=== PATIENT | male | born 1960 | race African-American/Black ===

== ENCOUNTER → 2017-10-23 | Outpatient (CLI) | payer BC ==
[~2017-10-23] MED LIST: LOPRESSOR 550 MG/TAB PO; MULTIPLE VITAMI1 CAP PO; NO HOME MEDICATIONS; NORCO 325 MG-51 TAB PO; NORVASC 5MG5 MG/TAB PO; PREDNISONE20 MG PO; PRINIVIL10 MG PO; TOPROL XL100 MG PO; VITAMIN B PO
[2017-10-23 16:36] LABS: BASO % 0.5 % (0.0-2.0); EOS # 0.1 (0.0-0.7); EOS % 1.1 % (0-4.0); GRAN # 6.4 (1.4-6.5); GRAN % 73.4 % (42.2-75.2); HEMATOCRIT 37.2 % (42.0-52.0); LYMPH # 1.4 (1.2-3.4); MEAN CELL VOLUME 89 fl (80.0-100.0); MEAN CORPUSCULAR HEMOGLOBIN 29 pg (27.0-31.0); MEAN CORPUSCULAR HGB CONC 32 g/dl (33.0-37.0); MEAN PLATELET VOLUME 11.6 fl (7.4-10.4); MONO # 0.8 (0.1-0.6); MONO % 8.8 % (1.7-9.3); PLATELET COUNT 188 K/mm3 (130-400); RED BLOOD COUNT 4.17 M/mm3 (4.20-5.60); REDCELL DISTRIBUTION WIDTH-CV 16.3 % (11.5-14.5)
[2017-10-23 16:40] LABS: BILIRUBIN,TOTAL 0.3 mg/dL (0.0-1.0); CALCIUM 9.4 mg/dL (8.4-10.2); CHOLESTEROL RISK RATIO 2.9; CREATININE, serum 1.72 mg/dL (0.66-1.25); POTASSIUM 5.3 mmol/L (3.4-5.0); TOTAL PROTEIN 7.2 gm/dL (6.4-8.2)
[2017-10-23 17:10] LABS: TSH w REFLEX 0.426 uIU/mL (0.465-4.680)
== END ==
LOC: COL.LAB 11:25
PROVIDERS: Nurse Practitioner
DX: I10 Essential (primary) hypertension (principal); R06.02 Shortness of breath; Z72.0 Tobacco use

== ENCOUNTER 2018-01-05 07:44 | Emergency (ER) | payer SELFPAY ==
[~2018-01-05] VITALS: Ht 175.3 cm; Wt 59.1 kg
[2018-01-05] MEDS ORDERED: HCTZ 25MG TAB25 MG PO (08:24)
[2018-01-05 08:42] LABS: INR 1.6 (0.8-3.0); PROTHROMBIN TIME 19.1 SECONDS (9.7-12.8)
[2018-01-05 08:51] LABS: BASO % 0.2 % (0.0-2.0); GRAN # 4.1 (1.4-6.5); GRAN % 64.2 % (42.2-75.2); HEMATOCRIT 44.4 % (42.0-52.0); HEMOGLOBIN 15.1 g/dl (13.5-18.0); LYMPH # 1.5 (1.2-3.4); LYMPH % 24.3 % (20.0-51.0); MEAN CELL VOLUME 85 fl (80.0-100.0); MEAN CORPUSCULAR HEMOGLOBIN 29 pg (27.0-31.0); MEAN CORPUSCULAR HGB CONC 34 g/dl (33.0-37.0); MONO # 0.7 (0.1-0.6); PLATELET COUNT 95 K/mm3 (130-400); RED BLOOD COUNT 5.21 M/mm3 (4.20-5.60); REDCELL DISTRIBUTION WIDTH-CV 17.4 % (11.5-14.5)
[2018-01-05 09:00] LABS: ALANINE AMINOTRANSFERASE 64 U/L (21-72); ALBUMIN 3.6 gm/dL (3.5-5.0); ALCOHOL(ethanol),MEDICAL < 10 mg/dL; ALKALINE PHOSPHATASE 289 U/L (50-136); ANION GAP 21 mmol/L (7-16); AST,SGOT 81 U/L (15-37); BILIRUBIN,TOTAL 1.6 mg/dL (0.0-1.0); BLOOD UREA NITROGEN 96 mg/dL (9-20); CALCIUM 8.8 mg/dL (8.4-10.2); CARBON DIOXIDE 19 mmol/L (22-30); CHLORIDE 98 mmol/L (98-107); GLUCOSE 108 mg/dL (74-106); POTASSIUM 5.4 mmol/L (3.4-5.0); SODIUM 139 mmol/L (137-145); TOTAL PROTEIN 6.5 gm/dL (6.4-8.2)
[2018-01-05 09:05] LABS: CREATININE, serum 2.67 mg/dL (0.66-1.25)
[2018-01-05 09:17] LABS: TROPONIN-I 0.082 ng/mL (0.000-0.034)
[2018-01-05 09:48] LABS: ARTERIAL BLD GAS O2 SATURATION 99.6 % (92-100); ARTERIAL BLD GAS TCO2 CT 17.5; ARTERIAL BLOOD GAS BASE EXCESS -4.3 (-2-2); ARTERIAL BLOOD GAS HCO3 16.8 meq/L (22-26); ARTERIAL BLOOD GAS pH 7.49 (7.35-7.45)
[2018-01-05 10:05] LABS: ARTERIAL BLOOD GAS PCO2 22.6 mmHg (35-45); ARTERIAL BLOOD GAS PO2 519.8 mmHg (80-100)
[2018-01-05 10:19] VITALS: BP 154/112; PULSE 84; TEMP 95.6
[2018-01-05 10:55] LABS: COLLECTION METHOD CATHETER
[2018-01-05 11:01] LABS: MUCOUS Present /lpf; PH 5 (5-8); SQUAMOUS EPITHELIAL None Seen /hpf; URINE APPEARANCE Clear; URINE BACTERIA Rare /hpf; URINE BILIRUBIN Negative (NEGATIVE); URINE BLOOD 1+ (NEGATIVE); URINE COLOR Yellow; URINE GLUCOSE Negative (NEGATIVE); URINE KETONE Negative (NEGATIVE); URINE LEUKOCYTE ESTERASE Negative (NEGATIVE); URINE NITRATE Negative (NEGATIVE); URINE PROTEIN(semi-quant) 1+ (NEGATIVE); URINE RBC 0-2 /hpf
== END 2018-01-05 10:50 | disposition short-term general hospital (02) ==
LOC: COL.ER 07:44
PROVIDERS: Family Medicine
DX: I50.9 Heart failure, unspecified (principal); I73.9 Peripheral vascular disease, unspecified; I10 Essential (primary) hypertension; F17.210 Nicotine dependence, cigarettes, uncomplicated
CPT/HCPCS: J1940; J3010; J7030

== ENCOUNTER 2018-03-08 17:33 | Inpatient (IN) | payer MEDICAID ==
[~2018-03-08] VITALS: Ht 175.3 cm; Wt 43.0 kg
[~2018-03-08 17:33] MED LIST changes: +HCTZ 25MG TAB25 MG PO
[2018-03-08 18:25] LABS: BASO % 0.2 % (0.0-2.0); GRAN # 11.2 (1.4-6.5); HEMATOCRIT 31.4 % (42.0-52.0); HEMOGLOBIN 10.1 g/dl (13.5-18.0); LYMPH % 8.1 % (20.0-51.0); MEAN CELL VOLUME 88 fl (80.0-100.0); MEAN CORPUSCULAR HEMOGLOBIN 28 pg (27.0-31.0); MEAN CORPUSCULAR HGB CONC 32 g/dl (33.0-37.0); MEAN PLATELET VOLUME 11.9 fl (7.4-10.4); MONO # 0.6 (0.1-0.6); MONO % 4.4 % (1.7-9.3); PLATELET COUNT 219 K/mm3 (130-400); RED BLOOD COUNT 3.57 M/mm3 (4.20-5.60); REDCELL DISTRIBUTION WIDTH-CV 20.8 % (11.5-14.5)
[2018-03-08 18:28] LABS: INR 1.3 (0.8-3.0); PROTHROMBIN TIME 14.8 SECONDS (9.7-12.8)
[2018-03-08 19:00] LABS: ALBUMIN 3.8 gm/dL (3.5-5.0); BILIRUBIN,TOTAL 0.9 mg/dL (0.0-1.0); CALCIUM 9.1 mg/dL (8.4-10.2); CREATININE, serum 0.98 mg/dL (0.66-1.25); POTASSIUM 4.4 mmol/L (3.4-5.0); TOTAL PROTEIN 7.8 gm/dL (6.4-8.2)
[2018-03-08 19:10] LABS: TROPONIN-I 0.049 ng/mL (0.000-0.034)
[2018-03-08] MEDS ORDERED: NEURONTIN300 MG/CAP PO (19:10)
[2018-03-08] MEDS ORDERED: LANOXIN 0.120.125 MG PO (19:11)
[2018-03-08] MEDS ORDERED: ALDACTONE50 MG PO (19:11)
[2018-03-08] MEDS ORDERED: LIPITOR 10MG10 MG PO (19:11)
[2018-03-08] MEDS ORDERED: TOPROL XL 25MG25 MG PO (19:16)
[2018-03-08 21:44] VITALS: BP 169/129; PULSE 91; TEMP 97.9
[2018-03-09] VITALS (11 sets, daily range): BP systolic 132–166; BP diastolic 94–111; PULSE 77–91; TEMP 97.6–98.5
[2018-03-09 06:02] LABS: BASO % 0.3 % (0.0-2.0); GRAN # 7.5 (1.4-6.5); LYMPH # 1.4 (1.2-3.4); LYMPH % 14.2 % (20.0-51.0); MEAN CELL VOLUME 86 fl (80.0-100.0); MEAN CORPUSCULAR HGB CONC 33 g/dl (33.0-37.0); MEAN PLATELET VOLUME 12.3 fl (7.4-10.4); MONO # 1.1 (0.1-0.6); MONO % 11.2 % (1.7-9.3); PLATELET COUNT 204 K/mm3 (130-400); REDCELL DISTRIBUTION WIDTH-CV 20.3 % (11.5-14.5)
[2018-03-09 06:11] LABS: HEMATOCRIT 26.6 % (42.0-52.0); HEMOGLOBIN 8.8 g/dl (13.5-18.0); MEAN CORPUSCULAR HEMOGLOBIN 28 pg (27.0-31.0)
[2018-03-09 06:14] LABS: CALCIUM 8.6 mg/dL (8.4-10.2); CREATININE, serum 1.02 mg/dL (0.66-1.25); POTASSIUM 4.2 mmol/L (3.4-5.0)
[2018-03-10] VITALS (11 sets, daily range): BP systolic 124–158; BP diastolic 75–108; PULSE 50–107; TEMP 97.2–98.4
[2018-03-10 07:45] LABS: BASO % 0.2 % (0.0-2.0); EOS % 0.1 % (0-4.0); GRAN # 9.4 (1.4-6.5); GRAN % 81.9 % (42.2-75.2); LYMPH # 1.3 (1.2-3.4); LYMPH % 11.2 % (20.0-51.0); MEAN CELL VOLUME 85 fl (80.0-100.0); MEAN CORPUSCULAR HGB CONC 34 g/dl (33.0-37.0); MEAN PLATELET VOLUME 13.2 fl (7.4-10.4); MONO # 0.7 (0.1-0.6); MONO % 6.1 % (1.7-9.3); PLATELET COUNT 245 K/mm3 (130-400); RED BLOOD COUNT 3.48 M/mm3 (4.20-5.60); REDCELL DISTRIBUTION WIDTH-CV 20.7 % (11.5-14.5)
[2018-03-10 07:51] LABS: HEMATOCRIT 29.4 % (42.0-52.0); HEMOGLOBIN 9.9 g/dl (13.5-18.0); MEAN CORPUSCULAR HEMOGLOBIN 28 pg (27.0-31.0)
[2018-03-10 07:53] LABS: CALCIUM 8.6 mg/dL (8.4-10.2); CREATININE, serum 1.26 mg/dL (0.66-1.25)
[2018-03-11] VITALS (266 sets, daily range): BP systolic 121–158; BP diastolic 79–113; PULSE 68–96; TEMP 97–98.9; O2SAT 92–100
[2018-03-11 06:33] LABS: BASO % 0.2 % (0.0-2.0); EOS % 0.2 % (0-4.0); GRAN # 8.1 (1.4-6.5); GRAN % 78.9 % (42.2-75.2); LYMPH # 1.4 (1.2-3.4); LYMPH % 13.1 % (20.0-51.0); MEAN CELL VOLUME 87 fl (80.0-100.0); MEAN CORPUSCULAR HGB CONC 33 g/dl (33.0-37.0); MEAN PLATELET VOLUME 12.2 fl (7.4-10.4); MONO # 0.8 (0.1-0.6); MONO % 7.3 % (1.7-9.3); PLATELET COUNT 238 K/mm3 (130-400); RED BLOOD COUNT 3.41 M/mm3 (4.20-5.60); REDCELL DISTRIBUTION WIDTH-CV 20.8 % (11.5-14.5)
[2018-03-11 06:45] LABS: HEMATOCRIT 29.7 % (42.0-52.0); HEMOGLOBIN 9.7 g/dl (13.5-18.0); MEAN CORPUSCULAR HEMOGLOBIN 28 pg (27.0-31.0)
[2018-03-11 06:50] LABS: CALCIUM 8.6 mg/dL (8.4-10.2); CREATININE, serum 1.09 mg/dL (0.66-1.25); POTASSIUM 3.5 mmol/L (3.4-5.0)
[2018-03-12] VITALS: BP 120/75; PULSE 75; TEMP 97.8
[2018-03-12 04:00] VITALS: BP 108/71; PULSE 72; TEMP 97.8
[2018-03-12 05:51] LABS: BASO % 0.3 % (0.0-2.0); EOS # 0.1 (0.0-0.7); EOS % 0.8 % (0-4.0); GRAN # 7.6 (1.4-6.5); GRAN % 74.2 % (42.2-75.2); HEMOGLOBIN 10.1 g/dl (13.5-18.0); LYMPH # 1.7 (1.2-3.4); LYMPH % 16.9 % (20.0-51.0); MEAN CELL VOLUME 83 fl (80.0-100.0); MEAN CORPUSCULAR HEMOGLOBIN 29 pg (27.0-31.0); MEAN CORPUSCULAR HGB CONC 34 g/dl (33.0-37.0); MEAN PLATELET VOLUME 11.4 fl (7.4-10.4); MONO # 0.8 (0.1-0.6); MONO % 7.6 % (1.7-9.3); PLATELET COUNT 235 K/mm3 (130-400); RED BLOOD COUNT 3.55 M/mm3 (4.20-5.60); REDCELL DISTRIBUTION WIDTH-CV 20.7 % (11.5-14.5)
[2018-03-12 05:53] LABS: HEMATOCRIT 29.5 % (42.0-52.0)
[2018-03-12 06:04] LABS: CALCIUM 8.1 mg/dL (8.4-10.2); CREATININE, serum 1.07 mg/dL (0.66-1.25); POTASSIUM 3.3 mmol/L (3.4-5.0)
[2018-03-12 07:15] VITALS: BP 119/82; PULSE 70; TEMP 97.9
[2018-03-12] MEDS ORDERED: BRILINTA90 MG PO (08:14)
[2018-03-12] MEDS ORDERED: LIPITOR 40MG TA40 MG PO (08:15)
[2018-03-12] MEDS ORDERED: NORVASC 5MG5 MG/TAB PO (08:16)
[2018-03-12] MEDS ORDERED: TOPROL XL100 MG PO (08:16)
[2018-03-12] MEDS ORDERED: ENTRESTO 24 MG1 EACH PO (08:16)
[2018-03-12] MEDS ORDERED: ISOSORBIDE MON120 MG PO (08:16)
[2018-03-12] MEDS ORDERED: ASPIRIN E.C. 8181 MG PO (08:18)
[2018-03-12] MEDS ORDERED: LASIX 40MG TABL40 MG PO (08:18)
[2018-03-12] MEDS ORDERED: K-TAB20 PO (08:19)
== END 2018-03-12 14:40 | disposition home or self-care (01) | DRG 247 ==
LOC: COL.ER 17:33 → ICU 20:24 → MEDICAL 03-10 04:15 → ICU 03-11 10:47 → MEDICAL 03-11 10:47 → ICU 03-11 10:47
PROVIDERS: Emergency Medicine; Nurse Practitioner; Physician Assistant
PROC: 027035Z Dilation of Coronary Artery, One Artery with Two Drug-eluting Intraluminal Devices, Percutaneous Approach (ICD-10-PCS; principal; 2018-03-11)
PROC: B2111ZZ Fluoroscopy of Multiple Coronary Arteries using Low Osmolar Contrast (ICD-10-PCS; 2018-03-11)
DX: I11.0 Hypertensive heart disease with heart failure (principal); N17.9 Acute kidney failure, unspecified; I50.23 Acute on chronic systolic (congestive) heart failure; E44.0 Moderate protein-calorie malnutrition; Z68.1 Body mass index [BMI] 19.9 or less, adult; I42.9 Cardiomyopathy, unspecified; I27.20 Pulmonary hypertension, unspecified; I16.0 Hypertensive urgency; F17.210 Nicotine dependence, cigarettes, uncomplicated; J44.9 Chronic obstructive pulmonary disease, unspecified; I25.2 Old myocardial infarction; Z89.612 Acquired absence of left leg above knee; Z95.5 Presence of coronary angioplasty implant and graft; I73.9 Peripheral vascular disease, unspecified
CPT/HCPCS: 99223-AI; 99233-AI; 99239; A9502; C1725; C1760; C1769; C1874; C1887; C1894; C9600; J0360; J0583; J1650; J1940; J2250; J2405; J2543; J2785; J3010; Q9967

== ENCOUNTER 2018-03-17 17:10 | Inpatient (IN) | payer MEDICAID ==
[~2018-03-17] VITALS: Ht 175.3 cm; Wt 44.9 kg
[2018-03-17 17:42] VITALS: BP 115/70; PULSE 74; TEMP 98
[2018-03-17 18:00] VITALS: BP 120/81; PULSE 76; TEMP 98
[2018-03-17] MEDS ORDERED: HCTZ 25MG TAB25 MG PO (18:33)
[2018-03-17 20:30] VITALS: BP 114/83; PULSE 743; TEMP 98.2
[2018-03-17 22:19] LABS: POTASSIUM 5.3 mmol/L (3.4-5.0)
[2018-03-17 22:43] LABS: TROPONIN-I 0.786 ng/mL (0.000-0.034)
[2018-03-18] VITALS (14 sets, daily range): BP systolic 83–110; BP diastolic 60–79; PULSE 70–84; TEMP 97.6–98.3; O2SAT 98–100
[2018-03-18 02:33] LABS: CALCIUM 9.3 mg/dL (8.4-10.2); CREATININE, serum 1.38 mg/dL (0.66-1.25); POTASSIUM 5.3 mmol/L (3.4-5.0)
[2018-03-18 02:47] LABS: TROPONIN-I 0.682 ng/mL (0.000-0.034)
[2018-03-18 04:19] LABS: BASO # 0.1 (0.0-0.2); BASO % 0.6 % (0.0-2.0); EOS # 0.3 (0.0-0.7); EOS % 2.9 % (0-4.0); GRAN # 5.4 (1.4-6.5); GRAN % 60.3 % (42.2-75.2); HEMOGLOBIN 11.9 g/dl (13.5-18.0); LYMPH # 2.2 (1.2-3.4); LYMPH % 24.4 % (20.0-51.0); MEAN CELL VOLUME 85 fl (80.0-100.0); MEAN CORPUSCULAR HEMOGLOBIN 28 pg (27.0-31.0); MEAN CORPUSCULAR HGB CONC 33 g/dl (33.0-37.0); MONO % 11.4 % (1.7-9.3); PLATELET COUNT 270 K/mm3 (130-400); RED BLOOD COUNT 4.19 M/mm3 (4.20-5.60); REDCELL DISTRIBUTION WIDTH-CV 21.2 % (11.5-14.5)
[2018-03-18 04:23] LABS: HEMATOCRIT 35.6 % (42.0-52.0)
[2018-03-18 04:29] LABS: BILIRUBIN,TOTAL 0.4 mg/dL (0.0-1.0); CALCIUM 9.2 mg/dL (8.4-10.2); CREATININE, serum 1.34 mg/dL (0.66-1.25); MAGNESIUM 2.3 mg/dL (1.6-2.3); POTASSIUM 5.3 mmol/L (3.4-5.0)
[2018-03-18 05:15] LABS: BILIRUBIN,DIRECT 0.4 mg/dL (0.0-0.4)
[2018-03-18 18:11] LABS: CALCIUM 9.1 mg/dL (8.4-10.2); CREATININE, serum 1.49 mg/dL (0.66-1.25); POTASSIUM 5.1 mmol/L (3.4-5.0)
[2018-03-19] VITALS (58 sets, daily range): BP systolic 77–105; BP diastolic 57–68; PULSE 71–97; TEMP 97.3–98.3; O2SAT 64–100
[2018-03-19 06:28] LABS: BASO # 0.1 (0.0-0.2); BASO % 0.6 % (0.0-2.0); EOS # 0.3 (0.0-0.7); EOS % 3.4 % (0-4.0); GRAN # 5.1 (1.4-6.5); GRAN % 61.3 % (42.2-75.2); HEMATOCRIT 38.1 % (42.0-52.0); HEMOGLOBIN 12.8 g/dl (13.5-18.0); LYMPH # 1.9 (1.2-3.4); LYMPH % 22.9 % (20.0-51.0); MEAN CELL VOLUME 83 fl (80.0-100.0); MEAN CORPUSCULAR HEMOGLOBIN 28 pg (27.0-31.0); MEAN CORPUSCULAR HGB CONC 34 g/dl (33.0-37.0); MEAN PLATELET VOLUME 11.1 fl (7.4-10.4); MONO # 0.9 (0.1-0.6); MONO % 11.2 % (1.7-9.3); PLATELET COUNT 293 K/mm3 (130-400); RED BLOOD COUNT 4.57 M/mm3 (4.20-5.60); REDCELL DISTRIBUTION WIDTH-CV 21.2 % (11.5-14.5)
[2018-03-19 06:39] LABS: ALBUMIN 3.8 gm/dL (3.5-5.0); BILIRUBIN,TOTAL 0.7 mg/dL (0.0-1.0); CALCIUM 9.2 mg/dL (8.4-10.2); CREATININE, serum 1.39 mg/dL (0.66-1.25); MAGNESIUM 2.1 mg/dL (1.6-2.3); POTASSIUM 5.3 mmol/L (3.4-5.0)
[2018-03-19 17:12] LABS: CALCIUM 8.6 mg/dL (8.4-10.2); CREATININE, serum 1.52 mg/dL (0.66-1.25); POTASSIUM 4.9 mmol/L (3.4-5.0)
[2018-03-20 04:14] VITALS: BP 94/75; PULSE 80; TEMP 98.3
[2018-03-20 08:09] LABS: BASO # 0.1 (0.0-0.2); BASO % 0.7 % (0.0-2.0); EOS # 0.2 (0.0-0.7); EOS % 2.8 % (0-4.0); GRAN # 4.6 (1.4-6.5); GRAN % 62.4 % (42.2-75.2); LYMPH # 1.6 (1.2-3.4); LYMPH % 21.3 % (20.0-51.0); MEAN CELL VOLUME 87 fl (80.0-100.0); MEAN CORPUSCULAR HEMOGLOBIN 28 pg (27.0-31.0); MEAN CORPUSCULAR HGB CONC 33 g/dl (33.0-37.0); MEAN PLATELET VOLUME 10.8 fl (7.4-10.4); MONO # 0.9 (0.1-0.6); MONO % 12.5 % (1.7-9.3); PLATELET COUNT 314 K/mm3 (130-400); RED BLOOD COUNT 4.23 M/mm3 (4.20-5.60); REDCELL DISTRIBUTION WIDTH-CV 20.9 % (11.5-14.5)
[2018-03-20 08:16] LABS: HEMATOCRIT 36.8 % (42.0-52.0)
[2018-03-20 08:28] LABS: ALBUMIN 3.7 gm/dL (3.5-5.0); CALCIUM 9.1 mg/dL (8.4-10.2); CREATININE, serum 1.3 mg/dL (0.66-1.25); PHOSPHOROUS 5.1 mg/dL (2.5-4.5); POTASSIUM 5.1 mmol/L (3.4-5.0)
[2018-03-20 09:28] VITALS: BP 108/67; PULSE 88; TEMP 98.6
[2018-03-20 12:14] VITALS: BP 103/71; PULSE 74; TEMP 97.3
[2018-03-20 15:21] LABS: CALCIUM 8.5 mg/dL (8.4-10.2); CREATININE, serum 1.31 mg/dL (0.66-1.25); POTASSIUM 4.4 mmol/L (3.4-5.0)
[2018-03-20] MEDS ORDERED: LASIX 20MG TABL20 MG PO (16:05)
[2018-03-20 16:34] VITALS: BP 95/65; PULSE 80; TEMP 97.7
== END 2018-03-20 17:10 | disposition home or self-care (01) | DRG 640 ==
LOC: ICU 17:10 → SURG 03-19 18:35
PROVIDERS: Family Medicine; Nurse Practitioner Family
DX: E87.5 Hyperkalemia (principal); E43 Unspecified severe protein-calorie malnutrition; I21.4 Non-ST elevation (NSTEMI) myocardial infarction; Z68.1 Body mass index [BMI] 19.9 or less, adult; N17.9 Acute kidney failure, unspecified; I50.22 Chronic systolic (congestive) heart failure; J44.9 Chronic obstructive pulmonary disease, unspecified; I25.10 Atherosclerotic heart disease of native coronary artery without angina pectoris; Z95.5 Presence of coronary angioplasty implant and graft; I73.9 Peripheral vascular disease, unspecified; Z89.512 Acquired absence of left leg below knee; I08.1 Rheumatic disorders of both mitral and tricuspid valves; F17.210 Nicotine dependence, cigarettes, uncomplicated; I25.5 Ischemic cardiomyopathy
CPT/HCPCS: 99232-AI; 99233-AI; 99239; G0378; G0379; J1170; J1650; J1940; J7050

== ENCOUNTER → 2018-03-17 | Outpatient (CLI) | payer MEDICAID ==
[~2018-03-17] MED LIST changes: +ALDACTONE50 MG PO; +ASPIRIN E.C. 8181 MG PO; +BRILINTA90 MG PO; +ENTRESTO 24 MG1 EACH PO; +ISOSORBIDE MON120 MG PO; +K-TAB20 PO; +LANOXIN 0.120.125 MG PO; +LASIX 40MG TABL40 MG PO; +LIPITOR 10MG10 MG PO; +LIPITOR 40MG TA40 MG PO; +NEURONTIN300 MG/CAP PO; +TOPROL XL 25MG25 MG PO
[2018-03-17 16:01] LABS: BASO # 0.1 (0.0-0.2); BASO % 0.5 % (0.0-2.0); EOS # 0.2 (0.0-0.7); EOS % 2.1 % (0-4.0); GRAN # 6.5 (1.4-6.5); GRAN % 67.9 % (42.2-75.2); HEMOGLOBIN 11.7 g/dl (13.5-18.0); LYMPH # 1.8 (1.2-3.4); LYMPH % 19.1 % (20.0-51.0); MEAN CELL VOLUME 87 fl (80.0-100.0); MEAN CORPUSCULAR HEMOGLOBIN 29 pg (27.0-31.0); MEAN CORPUSCULAR HGB CONC 33 g/dl (33.0-37.0); MEAN PLATELET VOLUME 11.1 fl (7.4-10.4); MONO % 10.1 % (1.7-9.3); PLATELET COUNT 279 K/mm3 (130-400); RED BLOOD COUNT 4.09 M/mm3 (4.20-5.60); REDCELL DISTRIBUTION WIDTH-CV 21.7 % (11.5-14.5)
[2018-03-17 16:03] LABS: HEMATOCRIT 35.4 % (42.0-52.0)
[2018-03-17 16:07] LABS: BILIRUBIN,TOTAL 0.7 mg/dL (0.0-1.0); CALCIUM 9.5 mg/dL (8.4-10.2); CREATININE, serum 1.33 mg/dL (0.66-1.25); TOTAL PROTEIN 8.1 gm/dL (6.4-8.2)
[2018-03-17 16:18] LABS: POTASSIUM 6.8 mmol/L (3.4-5.0)
[2018-03-17 16:36] LABS: TSH w REFLEX 0.219 uIU/mL (0.465-4.680)
== END ==
LOC: COL.LAB 11:00
PROVIDERS: Family Medicine
DX: I50.20 Unspecified systolic (congestive) heart failure (principal); R94.6 Abnormal results of thyroid function studies

== ENCOUNTER → 2018-03-22 | Outpatient (CLI) | payer MEDICAID, BC ==
[~2018-03-22] MED LIST changes: +LASIX 20MG TABL20 MG PO
[2018-03-22 14:26] LABS: CALCIUM 9.3 mg/dL (8.4-10.2); CREATININE, serum 1.33 mg/dL (0.66-1.25); POTASSIUM 5.7 mmol/L (3.4-5.0)
== END ==
LOC: COL.LAB 09:55
PROVIDERS: Family Medicine
DX: E87.5 Hyperkalemia (principal)

== ENCOUNTER → 2018-03-23 | Outpatient (CLI) | payer MEDICAID ==
[2018-03-23 10:20] LABS: CALCIUM 9.3 mg/dL (8.4-10.2); CREATININE, serum 1.21 mg/dL (0.66-1.25); POTASSIUM 4.7 mmol/L (3.4-5.0)
== END ==
LOC: COL.LAB 09:40
PROVIDERS: Family Medicine
DX: E78.5 Hyperlipidemia, unspecified (principal)

== ENCOUNTER → 2018-03-26 | Outpatient (CLI) | payer MEDICAID ==
[2018-03-26 16:57] LABS: CALCIUM 9.1 mg/dL (8.4-10.2); CREATININE, serum 1.16 mg/dL (0.66-1.25); POTASSIUM 4.9 mmol/L (3.4-5.0)
== END ==
LOC: COL.LAB 16:08
PROVIDERS: Family Medicine
DX: Z51.81 Encounter for therapeutic drug level monitoring (principal)

== ENCOUNTER → 2018-04-12 | Outpatient (CLI) | payer MEDICAID ==
[2018-04-12 16:15] LABS: CALCIUM 9.9 mg/dL (8.4-10.2); CREATININE, serum 1.53 mg/dL (0.66-1.25); POTASSIUM 5.5 mmol/L (3.4-5.0)
== END ==
LOC: COL.LAB 11:21
PROVIDERS: Family Medicine
DX: E87.5 Hyperkalemia (principal)

== ENCOUNTER → 2018-04-15 | Outpatient (CLI) | payer MEDICAID ==
[2018-04-15 15:44] LABS: CALCIUM 9.5 mg/dL (8.4-10.2); CREATININE, serum 1.51 mg/dL (0.66-1.25)
== END ==
LOC: COL.LAB 10:22
PROVIDERS: Family Medicine
DX: E87.5 Hyperkalemia (principal)

== ENCOUNTER → 2018-05-17 | Outpatient (CLI) | payer MEDICAID ==
[2018-05-17 11:45] LABS: COLLECTION METHOD CATHETER
[2018-05-17 11:57] LABS: CALCIUM 9.7 mg/dL (8.4-10.2); CREATININE, serum 1.96 mg/dL (0.66-1.25); POTASSIUM 4.8 mmol/L (3.4-5.0)
[2018-05-17 12:01] LABS: PH 5 (5-8); SQUAMOUS EPITHELIAL 0-2 /hpf; URINE APPEARANCE Clear; URINE BACTERIA None Seen /hpf; URINE BILIRUBIN Negative (NEGATIVE); URINE BLOOD Negative (NEGATIVE); URINE COLOR Yellow; URINE GLUCOSE Negative (NEGATIVE); URINE KETONE Negative (NEGATIVE); URINE LEUKOCYTE ESTERASE Negative (NEGATIVE); URINE NITRATE Negative (NEGATIVE); URINE PROTEIN(semi-quant) Negative (NEGATIVE); URINE RBC 0-2 /hpf; URINE UROBILINOGEN Negative (NEGATIVE); URINE WBC 0-2 /hpf
== END ==
LOC: COL.LAB 11:24
PROVIDERS: Internal Medicine
DX: I12.9 Hypertensive chronic kidney disease with stage 1 through stage 4 chronic kidney disease, or unspecified chronic kidney disease (principal); N18.3 Chronic kidney disease, stage 3 (moderate); E87.5 Hyperkalemia

== ENCOUNTER 2018-06-04 13:01 | Outpatient (RCR) | payer MEDICAID | END 2018-07-15 | disposition home or self-care (01) | LOC: COL.CR | DX: Z48.812 Encounter for surgical aftercare following surgery on the circulatory system (principal); Z95.5 Presence of coronary angioplasty implant and graft; I25.10 Atherosclerotic heart disease of native coronary artery without angina pectoris ==

== ENCOUNTER 2019-03-04 08:27 | Outpatient (CLI) | payer MEDICAID ==
[~2019-03-04] VITALS: Ht 175.3 cm; Wt 49.0 kg
[2019-03-04] VITALS (7 sets, daily range): BP systolic 108–117; BP diastolic 78–90; PULSE 63–71; TEMP 97.5–97.9
[~2019-03-04 08:27] MED LIST changes: +ALDACTONE 25MG25 M1 PO; +ENTRESTO 49 MG1 EACH PO; +FLONASEALLERGY NS; +MULTI VITAMINS1 TAB PO; +NITRO-DUR0.4 MG/PAT TD; +NITROSTAT0.4 MG/TAB SL; +NORVASC 10MG10 MG PO; +PLAVIX 75MG TAB75 MG PO; +REMERON30 MG PO; +TYLENOL 325MG325 MG PO
[2019-03-04 09:09] LABS: HEMATOCRIT 38.1 % (42.0-52.0); MEAN CELL VOLUME 87 fl (80.0-100.0); MEAN CORPUSCULAR HEMOGLOBIN 27 pg (27.0-31.0); MEAN CORPUSCULAR HGB CONC 32 g/dl (33.0-37.0); PLATELET COUNT 161 K/mm3 (130-400); RED BLOOD COUNT 4.39 M/mm3 (4.20-5.60); REDCELL DISTRIBUTION WIDTH-CV 19.5 % (11.5-14.5)
[2019-03-04] MEDS ORDERED: ALDACTONE 25MG25 M1 PO (09:18)
[2019-03-04 09:19] LABS: CALCIUM 9.1 mg/dL (8.4-10.2); CREATININE, serum 1.52 (0.66-1.25); POTASSIUM 5.1 mmol/L (3.4-5.0)
[2019-03-04] MEDS ORDERED: NORVASC 10MG10 MG PO (09:19)
[2019-03-04] MEDS ORDERED: PLAVIX 75MG TAB75 MG PO (09:21)
[2019-03-04] MEDS ORDERED: REMERON 15M15 MG/TA1 PO (09:22)
[2019-03-04] MEDS ORDERED: TYLENOL 500MG500 MG PO (09:23)
[2019-03-04] MEDS ORDERED: ENTRESTO 49 MG1 EACH PO (09:24)
[2019-03-04 09:26] LABS: PROTHROMBIN TIME 11.5 SECONDS (9.7-12.8)
[2019-03-04] MEDS ORDERED: NITRO-DUR0.4 MG/PAT TD (09:26)
[2019-03-04] MEDS ORDERED: NITROSTAT0.4 MG/TAB SL (09:27)
[2019-03-04] MEDS ORDERED: ASPIRIN E.C. 8181 MG PO (09:33)
[2019-03-04] MEDS ORDERED: ENTRESTO 97 MG1 EACH PO (10:25)
--- NOTE | 2019-03-04 10:45 | NUR ---
IVELISSE complete, pt yane IVELISSE well.
--- NOTE | 2019-03-04 12:00 | NUR ---
Pt yane PO intake s n/v. PIV removed from R AC with catheter intact. Pt transfered to w/c with SBA.
--- NOTE | 2019-03-04 12:30 | NUR ---
Pt discharged per w/c by nurse with brother in law.
== END 2019-03-04 13:08 | disposition home or self-care (01) ==
LOC: COL.RAD 08:27
PROVIDERS: Internal Medicine Cardiovascular Disease
DX: I34.0 Nonrheumatic mitral (valve) insufficiency (principal)
CPT/HCPCS: J2704

== ENCOUNTER 2019-03-09 11:04 | Observation (INO) | payer MEDICAID ==
[2019-03-09] VITALS (170 sets, daily range): BP systolic 106–109; BP diastolic 79–81; PULSE 61–66; TEMP 97.5–98; O2SAT 41–100
[~2019-03-09] VITALS: Ht 175.3 cm; Wt 45.5 kg
[~2019-03-09 11:04] MED LIST changes: +ENTRESTO 97 MG1 EACH PO; +REMERON 15M15 MG/TA1 PO; +TYLENOL 500MG500 MG PO
[2019-03-09 12:10] LABS: BASO % 0.4 % (0.0-2.0); EOS # 0.1 (0.0-0.7); EOS % 1.3 % (0-4.0); GRAN # 4.3 (1.4-6.5); GRAN % 64.6 % (42.2-75.2); HEMATOCRIT 43.7 % (42.0-52.0); HEMOGLOBIN 14.2 g/dl (13.5-18.0); LYMPH # 1.4 (1.2-3.4); LYMPH % 21.3 % (20.0-51.0); MEAN CELL VOLUME 84 fl (80.0-100.0); MEAN CORPUSCULAR HEMOGLOBIN 27 pg (27.0-31.0); MEAN CORPUSCULAR HGB CONC 33 g/dl (33.0-37.0); MONO # 0.8 (0.1-0.6); MONO % 12.1 % (1.7-9.3); PLATELET COUNT 145 K/mm3 (130-400)
[2019-03-09 12:14] LABS: PROTHROMBIN TIME 11.2 SECONDS (9.7-12.8)
[2019-03-09 12:17] LABS: PARTIAL THROMBOPLASTIN TIME 30.4 SECONDS (26.0-37.0)
[2019-03-09 12:24] LABS: ALANINE AMINOTRANSFERASE 15 U/L (21-72); ALBUMIN 4.3 gm/dL (3.5-5.0); ALKALINE PHOSPHATASE 150 U/L (50-136); ANION GAP 11 mmol/L (7-16); AST,SGOT 32 U/L (15-37); BILIRUBIN,TOTAL 0.5 mg/dL (0.0-1.0); BLOOD UREA NITROGEN 47 mg/dL (9-20); CALCIUM 9.2 mg/dL (8.4-10.2); CARBON DIOXIDE 22 mmol/L (22-30); CHLORIDE 108 mmol/L (98-107); CREATININE, serum 2.27 (0.66-1.25); GLUCOSE 99 mg/dL (74-106); POTASSIUM 4.5 mmol/L (3.4-5.0); SODIUM 141 mmol/L (137-145)
[2019-03-09 12:29] LABS: ACETAMINOPHEN < 10 ug/mL (10-30); ALCOHOL(ethanol),MEDICAL < 10 mg/dL; SALICYLATE < 1.0 mg/dL
[2019-03-09 12:39] LABS: PROLACTIN 11.6 ng/mL (3.7-17.9); TROPONIN-I < 0.012 ng/mL (0.000-0.035)
[2019-03-09 12:55] LABS: TSH w REFLEX 0.761 uIU/mL (0.465-4.680)
[2019-03-09 14:45] LABS: COLLECTION METHOD CLEAN CATCH
[2019-03-09 15:00] LABS: TRICYCLIC ANTIDEPRESS URINE NEGATIVE
[2019-03-09 15:21] LABS: PH 5 (5-8); SQUAMOUS EPITHELIAL None Seen /hpf; URINE APPEARANCE Clear; URINE BACTERIA Rare /hpf; URINE BILIRUBIN Negative (NEGATIVE); URINE BLOOD Negative (NEGATIVE); URINE COLOR Yellow; URINE GLUCOSE Negative (NEGATIVE); URINE KETONE Negative (NEGATIVE); URINE LEUKOCYTE ESTERASE Negative (NEGATIVE); URINE NITRATE Negative (NEGATIVE); URINE PROTEIN(semi-quant) Negative (NEGATIVE); URINE RBC 0-2 /hpf; URINE UROBILINOGEN Negative (NEGATIVE)
--- NOTE | 2019-03-09 16:15 | NUR ---
Report received from OSKAR Huynh waiting on room to be cleaned at this time.
--- NOTE | 2019-03-09 17:23 | NUR ---
Patient admitted to ICU#8 via stretcher from ER, patient moved himself to bed. Assessment complete, BELLA Oquendo) at bedside. Patient brought medications from home, when this RN was going through them for the med rec, a "pipe" was found in the flonase box, Security was called, who in turn called [employer] to come get the pipe.
--- NOTE | 2019-03-09 18:00 | NUR ---
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
--- NOTE | 2019-03-09 19:21 | NUR ---
Report given to OSKAR Molina.
--- NOTE | 2019-03-09 19:25 | NUR ---
Bedside report received from OSKAR Olea
--- NOTE | 2019-03-09 19:45 | NUR ---
Belongings packed into bag and taken to locked cabinet. acid condenser bag.
--- NOTE | 2019-03-09 20:00 | NUR ---
Patient resting in bed, awakens to name. Patient is alert and oriented. Assessment complete. Patient's HR and rhythm regular with normal S1 and S2 heard. Patient's lungs are clear with diminished bases. Bowel sounds are active x4. No complaints of pain. Assisted patient to sitting up for meal. Will continue to monitor. Call light within reach.
[2019-03-10] VITALS (241 sets, daily range): BP systolic 102–116; BP diastolic 71–74; PULSE 58–77; TEMP 97.6–98.3; O2SAT 30–99
--- NOTE | 2019-03-10 | NUR ---
Patient asleep at this time. Awakens to name. He is alert and oriented. Responds to questions appropriately. Patient has no needs at this time and no complaints of pain. Vitals are stable. Will continue to monitor. Call light within reach.
--- NOTE | 2019-03-10 04:00 | NUR ---
Patient sleeping at this time. No signs of distress. He alert and oriented, awakens to name, follows commands. No complaints of pain. No further needs at this time. Will continue to monitor. Call light within reach.
--- NOTE | 2019-03-10 06:18 | NUR ---
report called to OSKAR Joseph. Patient transferred to [facility] with belongings.
[2019-03-10 09:03] LABS: BASO % 0.6 % (0.0-2.0); EOS # 0.1 (0.0-0.7); EOS % 1.9 % (0-4.0); GRAN # 4.6 (1.4-6.5); GRAN % 67.5 % (42.2-75.2); HEMATOCRIT 45.3 % (42.0-52.0); HEMOGLOBIN 14.5 g/dl (13.5-18.0); LYMPH # 1.4 (1.2-3.4); LYMPH % 20.3 % (20.0-51.0); MEAN CELL VOLUME 85 fl (80.0-100.0); MEAN CORPUSCULAR HEMOGLOBIN 27 pg (27.0-31.0); MEAN CORPUSCULAR HGB CONC 32 g/dl (33.0-37.0); MEAN PLATELET VOLUME 10.6 fl (7.4-10.4); MONO # 0.7 (0.1-0.6); MONO % 9.6 % (1.7-9.3); PLATELET COUNT 159 K/mm3 (130-400); RED BLOOD COUNT 5.35 M/mm3 (4.20-5.60); REDCELL DISTRIBUTION WIDTH-CV 20.5 % (11.5-14.5)
[2019-03-10 09:10] LABS: ALANINE AMINOTRANSFERASE < 6 U/L (21-72); ALBUMIN 4.1 gm/dL (3.5-5.0); ALKALINE PHOSPHATASE 139 U/L (50-136); ANION GAP 10 mmol/L (7-16); AST,SGOT 26 U/L (15-37); BILIRUBIN,TOTAL 0.5 mg/dL (0.0-1.0); BLOOD UREA NITROGEN 35 mg/dL (9-20); CALCIUM 9.1 mg/dL (8.4-10.2); CARBON DIOXIDE 23 mmol/L (22-30); CHLORIDE 109 mmol/L (98-107); CREATININE, serum 1.68 (0.66-1.25); GLUCOSE 87 mg/dL (74-106); POTASSIUM 4.9 mmol/L (3.4-5.0); SODIUM 142 mmol/L (137-145); TOTAL PROTEIN 7.7 gm/dL (6.4-8.2)
--- NOTE | 2019-03-10 15:46 | NUR ---
SW unable to meet with patient before discharge.
--- NOTE | 2019-03-10 16:10 | NUR ---
discharge orders discussed with patient, instructed to follow up as we have scheduled, discussed medicaitons changes, instructed to call Cardiology if his life vest is not functioning properly at home, instructed on smoking and illicit drug cessaation, IV and tele removed, leaving with his mom and neice
== END 2019-03-10 16:25 | disposition home or self-care (01) ==
LOC: COL.ER 11:04 → MEDICAL 13:33 → EU 13:33 → MEDICAL 13:33 → ICU 16:47 → MEDICAL 03-10 06:14
PROVIDERS: Emergency Medicine; Nurse Practitioner Family; ADMIT Family Medicine
DX: R41.82 Altered mental status, unspecified (principal); I25.5 Ischemic cardiomyopathy; Z89.512 Acquired absence of left leg below knee; I10 Essential (primary) hypertension; G62.9 Polyneuropathy, unspecified; I25.10 Atherosclerotic heart disease of native coronary artery without angina pectoris; F17.210 Nicotine dependence, cigarettes, uncomplicated; Z79.51 Long term (current) use of inhaled steroids; Z79.02 Long term (current) use of antithrombotics/antiplatelets; Z79.82 Long term (current) use of aspirin; I25.2 Old myocardial infarction
CPT/HCPCS: 99222-AI; G0378; J1644

== ENCOUNTER → 2019-03-31 | Outpatient (CLI) | payer MEDICAID ==
[2019-03-31 11:14] LABS: CALCIUM 9.1 mg/dL (8.4-10.2); CREATININE, serum 1.34 (0.66-1.25); POTASSIUM 5.7 mmol/L (3.4-5.0)
== END ==
LOC: COL.LAB 10:23
PROVIDERS: Internal Medicine
DX: I12.9 Hypertensive chronic kidney disease with stage 1 through stage 4 chronic kidney disease, or unspecified chronic kidney disease (principal); N18.3 Chronic kidney disease, stage 3 (moderate)

== ENCOUNTER 2019-04-25 20:32 | Observation (INO) | payer MEDICAID ==
[~2019-04-25] VITALS: Ht 175.3 cm; Wt 53.8 kg
[2019-04-25 21:03] LABS: BASO % 0.3 % (0.0-2.0); EOS # 0.1 (0.0-0.7); EOS % 0.8 % (0-4.0); GRAN # 7.2 (1.4-6.5); GRAN % 68.7 % (42.2-75.2); HEMATOCRIT 42.8 % (42.0-52.0); HEMOGLOBIN 13.4 g/dl (13.5-18.0); LYMPH # 2.3 (1.2-3.4); LYMPH % 22.3 % (20.0-51.0); MEAN CELL VOLUME 89 fl (80.0-100.0); MEAN CORPUSCULAR HEMOGLOBIN 28 pg (27.0-31.0); MEAN CORPUSCULAR HGB CONC 31 g/dl (33.0-37.0); MONO # 0.8 (0.1-0.6); MONO % 7.6 % (1.7-9.3); PLATELET COUNT 148 K/mm3 (130-400); RED BLOOD COUNT 4.79 M/mm3 (4.20-5.60); REDCELL DISTRIBUTION WIDTH-CV 20.2 % (11.5-14.5)
[2019-04-25 21:14] LABS: COLLECTION METHOD CLEAN CATCH
[2019-04-25 21:16] LABS: INR 1.1 (0.8-3.0)
[2019-04-25 21:18] LABS: PARTIAL THROMBOPLASTIN TIME 27.9 SECONDS (26.0-37.0)
[2019-04-25 21:19] LABS: PH 5 (5-8); SQUAMOUS EPITHELIAL None Seen /hpf; URINE APPEARANCE Clear; URINE BACTERIA None Seen /hpf; URINE BILIRUBIN Negative (NEGATIVE); URINE BLOOD Negative (NEGATIVE); URINE COLOR Yellow; URINE GLUCOSE Negative (NEGATIVE); URINE KETONE Negative (NEGATIVE); URINE LEUKOCYTE ESTERASE Negative (NEGATIVE); URINE NITRATE Negative (NEGATIVE); URINE PROTEIN(semi-quant) 2+ (NEGATIVE); URINE RBC 0-2 /hpf; URINE UROBILINOGEN Negative (NEGATIVE)
[2019-04-25] MEDS ORDERED: COZAAR 25MG25 MG/TAB PO (21:19)
[2019-04-25 21:52] LABS: TRICYCLIC ANTIDEPRESS URINE NEGATIVE
[2019-04-25 21:52] LABS: ALANINE AMINOTRANSFERASE 30 U/L (21-72); ALBUMIN 3.7 gm/dL (3.5-5.0); ALKALINE PHOSPHATASE 191 U/L (50-136); ANION GAP 12 mmol/L (7-16); AST,SGOT 25 U/L (15-37); BILIRUBIN,TOTAL 0.4 mg/dL (0.0-1.0); BLOOD UREA NITROGEN 33 mg/dL (9-20); CALCIUM 8.5 mg/dL (8.4-10.2); CARBON DIOXIDE 22 mmol/L (22-30); CHLORIDE 107 mmol/L (98-107); CREATININE, serum 1.49 (0.66-1.25); GLUCOSE 98 mg/dL (74-106); POTASSIUM 4.6 mmol/L (3.4-5.0); SODIUM 141 mmol/L (137-145); TOTAL PROTEIN 6.6 gm/dL (6.4-8.2)
[2019-04-25 22:04] LABS: TROPONIN-I < 0.012 ng/mL (0.000-0.035)
[2019-04-26] VITALS (7 sets, daily range): BP systolic 102–125; BP diastolic 66–88; PULSE 58–77; TEMP 97.5–98
--- NOTE | 2019-04-26 00:15 | NUR ---
PT ARRIVED TO MEDICAL UNIT A+OX4. REPORTS NO PAIN. BKA NOTED. PT OUTPUT 575 AT THIS TIME. IV TO THE RIGHT FA- FLUSHES WELL, NO REDNESS, NO SWELLING. LUNGS CLEAR- RIGHT BASE DIMINISHED. PT APPEARS UNINTERESTED. PT DOES NOT KNOW HOME MEDICATIONS. NO LIST- THIS NURSE CALLED PT MOTHER- MOTHER REPORTS SHE WILL CALL BACK WITH LIST WHEN SHE FINDS IT OR GETS AHOLD OF OTHER FAMILY. NO EDEMA NOTED. TELE ON. NO CONCERNS AT THIS TIME. CALL LIGHT IN REACH.
--- NOTE | 2019-04-26 05:02 | NUR ---
PT HAD AN UNEVENTFUL NIGHT. REPORTS NO PAIN. SLEPT THROUGHOUT NIGHT. PT ON 2L VIA NC- O2 SAT 95%. LEFT BKA NOTED. RADIAL AND RIGHT PEDAL PULSE FELT. LUNGS CLEAR, RIGH BASE DIMINISHED. NO SOA SINCE ARRIVAL TO MEDICAL UNIT. TELE ON. IV FLUSHES WELL, NO REDNESS, NO SWELLING. PT URINE CLEAR, PALE YELLOW. SKIN INTACT. STATES "I THINK I HAVE ALL THE PIECES TO MY LIFE VEST AT HOME, THE BATTERY MIGHT BE BROKEN". NO NEEDS AT THIS TIME. CALL LIGHT IN REACH
[2019-04-26 06:22] LABS: BASO % 0.3 % (0.0-2.0); EOS % 0.4 % (0-4.0); GRAN # 5.6 (1.4-6.5); GRAN % 70.5 % (42.2-75.2); LYMPH # 1.6 (1.2-3.4); LYMPH % 20.8 % (20.0-51.0); MEAN CELL VOLUME 86 fl (80.0-100.0); MEAN CORPUSCULAR HGB CONC 32 g/dl (33.0-37.0); MEAN PLATELET VOLUME 11.8 fl (7.4-10.4); MONO # 0.6 (0.1-0.6); MONO % 7.6 % (1.7-9.3); PLATELET COUNT 135 K/mm3 (130-400); RED BLOOD COUNT 3.96 M/mm3 (4.20-5.60); REDCELL DISTRIBUTION WIDTH-CV 19.6 % (11.5-14.5)
[2019-04-26 06:32] LABS: CALCIUM 8.6 mg/dL (8.4-10.2); CREATININE, serum 1.34 (0.66-1.25); POTASSIUM 4.3 mmol/L (3.4-5.0)
[2019-04-26 06:38] LABS: MEAN CORPUSCULAR HEMOGLOBIN 28 pg (27.0-31.0)
[2019-04-26 06:39] LABS: HEMATOCRIT 34.2 % (42.0-52.0)
--- NOTE | 2019-04-26 07:11 | NUR ---
REPORT GIVEN TO OSKAR TELLEZ
--- NOTE | 2019-04-26 10:25 | NUR ---
Initial visit; Patient thanked Silk Screen Printer Machine for offering God's blessings. Otherwise patient stated he is 'fine.'
--- NOTE | 2019-04-26 14:48 | NUR ---
SW attended clinical rounds. Patient's daughter was also present. Patient lives independently at home. Patient has family close by. Patient's PCP is Dr Russell and he obtains prescriptions from [email or web address]. There is no reported DME or home health services. Patient does have advanced diretives in the EMR. SW will continue to follow and assist with any discharge needs. No anticipated discharge needs at this time.
--- NOTE | 2019-04-26 16:24 | NUR ---
Patient assessment completed and charted. Patient med rec completed, was able to obtain med list from daughter. Pt denies SOB, pain, dizziness, chest pain, N/V. Pt on room air & states feeling better than yesterday. Pt has had uneventful day, napping most of afternoon. Requested Nicotine patch. Pt assisted with wheelchair to bathroom. RFA INT IV patent. Cooperative with cares, denies complaints at this time.
--- NOTE | 2019-04-26 17:10 | NUR ---
Pt received CHF notebook, discussed with patient Low Na diet. Nicotine patch applied to left shoulder.
--- NOTE | 2019-04-26 19:02 | NUR ---
Pt report given to OSKAR Edward. Family in room with pt, no complaints.
--- NOTE | 2019-04-26 20:30 | NUR ---
PT RESTING IN BED A+OX4. REPORTS NO PAIN. LUNGS CLEAR X4. RIGHT FA IV FLUSHES WELL, NO REDNESS, NO SWELLING. TELE ON. NO SOA AT THIS TIME. REPORTS FEELING COLD, WARM BLANKET GIVEN. SHIFT ASSESSMENT COMPLETE NO CONCERS AT THIS TIME. CALL LIGHT IN REACH.
--- NOTE | 2019-04-26 21:32 | NUR ---
O2 SAT 91% PLACED PT ON 1L VIA NC
[2019-04-27 03:31] VITALS: BP 109/78; PULSE 66; TEMP 97.6
--- NOTE | 2019-04-27 05:38 | NUR ---
PT HAD AN UNEVENTFUL NIGHT. REPORTS NO PAIN. NO SOA. PLACED PT ON 1L VIA NC WHILE SLEEPING. VSS. ASSISTED PT TO BATHROOM THROUGHOUT NIGHT. IV FLUSHES WELL NO REDNESS, NO SWELLING. NO EDEMA. NO NEEDS AT THIS TIME. CALL LIGHT IN REACH
--- NOTE | 2019-04-27 07:08 | NUR ---
REPORT GIVEN TO OSKAR UP
[2019-04-27 07:27] VITALS: BP 132/93; PULSE 76; TEMP 97.7
[2019-04-27] MEDS ORDERED: LASIX 20MG TABL20 MG PO (09:45)
--- NOTE | 2019-04-27 11:00 | NUR ---
PT HAD EKG AND LABS CHECKED THIS AM, SUPERVISOR AGENCY APPOINTMENTS STATED PT HAD SOME WIDE QRS, THIS NURSE NOTIFIED HOSPITALIST. PT LAYING IN BED, NO C/O PAIN OR ISSUES VOICED.
[2019-04-27 11:58] VITALS: BP 120/81; PULSE 71; TEMP 97.7
--- NOTE | 2019-04-27 12:00 | NUR ---
PT FAMILY MEMBER AT BEDSIDE. DISHARGE EDUCATION AND PAPERWORK PROIVED TO PT, SIGNATURES OBTAINED. PT FAMILY MEMBER WANTED AN EXTRA COPY OF PT MED REC, PROVIDED. IV AND TELE REMOVED. PT WANTING TO FINISH LUNCH PRIOR TO LEAVING FACILITY.
--- NOTE | 2019-04-27 13:05 | NUR ---
PT ESCORTED OUT OF FACILITY VIA W/C BY THIS NURSE. NO QUESTIONS OR CONSERNS VOICED.
== END 2019-04-27 13:05 | disposition home or self-care (01) ==
LOC: COL.ER 20:32 → MEDICAL 23:09
PROVIDERS: Emergency Medicine; Nurse Practitioner; ADMIT Family Medicine
DX: I13.0 Hypertensive heart and chronic kidney disease with heart failure and stage 1 through stage 4 chronic kidney disease, or unspecified chronic kidney disease (principal); I50.9 Heart failure, unspecified; N18.2 Chronic kidney disease, stage 2 (mild); I25.5 Ischemic cardiomyopathy; I25.10 Atherosclerotic heart disease of native coronary artery without angina pectoris; Z95.5 Presence of coronary angioplasty implant and graft; I73.9 Peripheral vascular disease, unspecified; F17.210 Nicotine dependence, cigarettes, uncomplicated; G62.9 Polyneuropathy, unspecified; Z89.512 Acquired absence of left leg below knee; R18.8 Other ascites; N20.0 Calculus of kidney; Z79.01 Long term (current) use of anticoagulants; Z79.899 Other long term (current) drug therapy; Z79.82 Long term (current) use of aspirin; Z95.811 Presence of heart assist device
CPT/HCPCS: 99223-AI; 99239; G0378; J1940; Q9967

== ENCOUNTER 2019-05-19 11:51 | Emergency (ER) | payer MEDICAID ==
[~2019-05-19] VITALS: Ht 175.3 cm; Wt 51.4 kg
[~2019-05-19 11:51] MED LIST changes: +COZAAR 25MG25 MG/TAB PO
[2019-05-19 12:35] LABS: BASO % 0.4 % (0.0-2.0); EOS % 0.4 % (0-4.0); GRAN # 5.8 (1.4-6.5); GRAN % 71.7 % (42.2-75.2); HEMATOCRIT 49.1 % (42.0-52.0); LYMPH # 1.6 (1.2-3.4); LYMPH % 19.6 % (20.0-51.0); MEAN CELL VOLUME 86 fl (80.0-100.0); MEAN CORPUSCULAR HEMOGLOBIN 28 pg (27.0-31.0); MEAN CORPUSCULAR HGB CONC 33 g/dl (33.0-37.0); MONO # 0.6 (0.1-0.6); MONO % 7.7 % (1.7-9.3); PLATELET COUNT 151 K/mm3 (130-400); RED BLOOD COUNT 5.72 M/mm3 (4.20-5.60); REDCELL DISTRIBUTION WIDTH-CV 17.8 % (11.5-14.5)
[2019-05-19 12:45] LABS: ALBUMIN 4.6 gm/dL (3.5-5.0); BILIRUBIN,TOTAL 0.8 mg/dL (0.0-1.0); CALCIUM 9.6 mg/dL (8.4-10.2); CREATININE, serum 1.92 (0.66-1.25); POTASSIUM 5.4 mmol/L (3.4-5.0); TOTAL PROTEIN 8.7 gm/dL (6.4-8.2)
[2019-05-19 12:57] LABS: TROPONIN-I 0.016 ng/mL (0.000-0.035)
[2019-05-19 15:23] VITALS: BP 120/87; PULSE 77; TEMP 98
== END 2019-05-19 15:35 | disposition home or self-care (01) ==
LOC: COL.ER 11:51
PROVIDERS: Emergency Medicine
DX: R06.02 Shortness of breath (principal); I25.10 Atherosclerotic heart disease of native coronary artery without angina pectoris; F17.210 Nicotine dependence, cigarettes, uncomplicated
CPT/HCPCS: J0610

== ENCOUNTER 2019-11-29 11:44 | Observation (INO) | payer MEDICAID ==
[~2019-11-29] VITALS: Ht 175.3 cm; Wt 57.0 kg
[2019-11-29 13:03] LABS: BASO % 0.2 % (0.0-2.0); EOS % 0.2 % (0-4.0); GRAN # 6.7 (1.4-6.5); GRAN % 75.8 % (42.2-75.2); HEMATOCRIT 44.1 % (42.0-52.0); HEMOGLOBIN 14.4 g/dl (13.5-18.0); LYMPH # 1.4 (1.2-3.4); LYMPH % 16.3 % (20.0-51.0); MEAN CELL VOLUME 92 fl (80.0-100.0); MEAN CORPUSCULAR HEMOGLOBIN 30 pg (27.0-31.0); MEAN CORPUSCULAR HGB CONC 33 g/dl (33.0-37.0); MEAN PLATELET VOLUME 11.4 fl (7.4-10.4); MONO # 0.7 (0.1-0.6); MONO % 7.3 % (1.7-9.3); PLATELET COUNT 158 K/mm3 (130-400); REDCELL DISTRIBUTION WIDTH-CV 14.7 % (11.5-14.5)
[2019-11-29 13:11] LABS: ALBUMIN 4.5 gm/dL (3.5-5.0); BILIRUBIN,TOTAL 0.4 mg/dL (0.0-1.0); CALCIUM 9.1 mg/dL (8.4-10.2); CREATININE, serum 1.61 (0.66-1.25); POTASSIUM 4.4 mmol/L (3.4-5.0)
[2019-11-29 13:28] LABS: TROPONIN-I 0.069 ng/mL (0.000-0.035)
[2019-11-29 15:24] LABS: PROTHROMBIN TIME 11.5 SECONDS (9.7-12.8)
[2019-11-29 15:26] LABS: PARTIAL THROMBOPLASTIN TIME 28.8 SECONDS (26.0-37.0)
[2019-11-29 16:00] LABS: MAGNESIUM 2.1 mg/dL (1.6-2.3)
[2019-11-29] MEDS ORDERED: ENTRESTO 24 MG1 EACH PO (17:01)
[2019-11-29 17:18] VITALS: BP 137/84; PULSE 37; TEMP 97.7
--- NOTE | 2019-11-29 20:04 | NUR ---
Pt up to room 318, admission completed. Pt is A&O. Appears uninterested, flat affect during admission questions. Pt started on hep gtt in ER at 7 ml/hr running to RAC w/o complications. Pt on room air, denies SOB at this time, breathing is even and unlabored. Pt has Lt AKA. No edema noted to rt extremity. Pulses strong bilaterally. LS cta. Pt denies dizziness, SOB, N/V/D. Pt denies any complaints at this time. Pt doesn't know what medications he takes and doesn't have a list with him. Nursing order to obtain med list from [facility], not obtained this shift. shift engineer nurse aware and will have day shift obtain list tomorrow morning. No other concerns noted.
--- NOTE | 2019-11-29 20:10 | NUR ---
Report received from Johnna. Patient is awake, lying on bed. With heparin drip at 7ml/hr infusing at right AC. He is alert and oriented. He refuses to eat his dinner and says he's not hungry. With urinal on the bedside. Denies any pain. No shortness of breath as well. Instructed patient he is on fluid restriction of 1500ml and on NPO at midnight. With left above knee amputation.
[2019-11-30] VITALS (11 sets, daily range): BP systolic 136–165; BP diastolic 58–95; PULSE 46–101; TEMP 97.8–98.2
[2019-11-30 07:00] LABS: BASO % 0.3 % (0.0-2.0); EOS # 0.1 (0.0-0.7); EOS % 0.9 % (0-4.0); GRAN # 4.8 (1.4-6.5); GRAN % 68.9 % (42.2-75.2); HEMATOCRIT 42.4 % (42.0-52.0); LYMPH # 1.5 (1.2-3.4); LYMPH % 21.2 % (20.0-51.0); MEAN CELL VOLUME 91 fl (80.0-100.0); MEAN CORPUSCULAR HEMOGLOBIN 30 pg (27.0-31.0); MEAN CORPUSCULAR HGB CONC 33 g/dl (33.0-37.0); MEAN PLATELET VOLUME 11.5 fl (7.4-10.4); MONO # 0.6 (0.1-0.6); MONO % 8.6 % (1.7-9.3); PLATELET COUNT 145 K/mm3 (130-400); RED BLOOD COUNT 4.67 M/mm3 (4.20-5.60); REDCELL DISTRIBUTION WIDTH-CV 14.8 % (11.5-14.5)
--- NOTE | 2019-11-30 07:00 | NUR ---
Report received from OSKAR Emmanuel. pT in bed resting, eyes closed, antwan needs, will continue to monitor.
[2019-11-30 07:12] LABS: CALCIUM 8.9 mg/dL (8.4-10.2); CHOLESTEROL RISK RATIO 3.8; CREATININE, serum 1.55 (0.66-1.25); POTASSIUM 4.5 mmol/L (3.4-5.0)
--- NOTE | 2019-11-30 07:19 | NUR ---
Endorsed patient to Tatiana. Patient denies any pain or shortness of breath. Heparin drip still at 7ml/hr. Patient aware of NPO status.
[2019-11-30 07:47] LABS: TROPONIN-I 0.076 ng/mL (0.000-0.035)
--- NOTE | 2019-11-30 09:15 | NUR ---
Assessment charted. PT went down for lexiscan with nuc med nurse. Pt resting in bed. denies any chest pain or discomfort. Denies other pain or needs. Resting quietly and anticipating lexiscan today. Reviewed lab results for troponin. Will continue to monitor.
--- NOTE | 2019-11-30 11:24 | NUR ---
SW met with the patient to discuss discharge plan. The patient lives alone in [place]. He states that his mother, Ying Berry (ph#[phone]), and siblings also live in [place]. He reports independence with ADLs and has a walker and wheelchair. The patient's PCP is Dr. Hernandez Russell and he receives his medications at [facility]. He reports no difficulties obtaining his meds. The patient's DPOA-HC is in EMR and it designates his mother, Ying. The patient plans to return home upon discharge. No additional needs at this time.
--- NOTE | 2019-11-30 14:44 | NUR ---
Called Computer Information Systems Professor regarding results of stress test, per Jian patient can eat and drink. Will update and continue to monitor.
[2019-11-30] MEDS ORDERED: NITRO-DUR0.4 MG/PAT TD (16:51)
--- NOTE | 2019-11-30 18:50 | NUR ---
PT report given at bedside by Gill SCHMITT. PT is resting in bed with TV on denies pain/wants or needs at this time. PT's mother enters room and PT is noted to be discussing with his mother about how he wants to go home and doesn't feel as if there is a need for him to remain hospitalized. PT mother expresses that PT is agitated and gets this way at times and wants to know when dinner is being served. Education provided that food trays should be arriving shortly and PT will be provided a tray with food and beverages. PT mother states understanding. No s/s of distress noted. Will continue to monitor.
--- NOTE | 2019-11-30 20:55 | NUR ---
PT presents in bed with tv on and IV heparin drip infusing. PT denies pain or wants/needs at this time. PT has male urinal at bedside, call light within reach, and a can of sprite and cup of ice with clear liquid on bedside table within reach. PT presents with no s/s of distress, is A&Ox4 and resting peacefully in bed with TV on. Mother is at bedside. Will continue to monitor.
[2019-12-01 00:10] VITALS: BP 113/84; PULSE 69; TEMP 98.1
--- NOTE | 2019-12-01 01:44 | NUR ---
PT is resting in bed peacefully with eyes closed and no s/s of distress noted. Pt has requested help to use restroom once since HS meds and is noted to use this show card writer for support and to then hop towards the bed. Gait belt is in use for PT safety D/T fall risk from Left AKA. Will continue to monitor.
[2019-12-01 04:09] VITALS: BP 137/80; PULSE 66; TEMP 97.6
--- NOTE | 2019-12-01 04:16 | NUR ---
PT has periodically woken up to notify this typewriter repairer that his IV alarm was triggered. Each time this typewriter repairer responded it was noted to indicate that the line was occulded due to IV placement in PT's AC and PT bending his arm while he slept. PT has shown no s/s of cardiopulmonary distress during the shift and has denied pain, SOA, needs/wants. Will continue to monitor.
--- NOTE | 2019-12-01 06:13 | NUR ---
This law writer was notified that PT heparin drip bag was nearly empty. Upon assessing bag there is about 30ml remaining. PT heparin is infusing at 7ml/hr. New Heparin bag placed on IV pole to facilitate changing bags. Will continue to monitor. PT resting peacefully in bed with eyes closed and no s/s of distress noted.
[2019-12-01 08:05] VITALS: BP 134/85; PULSE 68; TEMP 98.1
--- NOTE | 2019-12-01 10:12 | NUR ---
Pt BP 139/105, gave BP medication
[2019-12-01 10:13] VITALS: BP 139/105
--- NOTE | 2019-12-01 11:47 | NUR ---
Pt awake and alert, shift assessments complete, left Pt call light in rech, bed in lowest position.
--- NOTE | 2019-12-01 13:52 | NUR ---
Reported off to Primary Nurse
--- NOTE | 2019-12-01 13:56 | NUR ---
Primary nurse was assisted with [phone] patient care by [employer] student Vanessa Dewey and [employer] instructor Catherine Ashford RN-.
--- NOTE | 2019-12-01 14:16 | NUR ---
Pt discharged to home, escorted to entrance, left with family via private transportation.
== END 2019-12-01 14:17 | disposition home or self-care (01) ==
LOC: COL.ER 11:44 → MEDICAL 14:14
PROVIDERS: Family Medicine; Physician Assistant; ADMIT Hospitalist
DX: R06.02 Shortness of breath (principal); I25.10 Atherosclerotic heart disease of native coronary artery without angina pectoris; I13.0 Hypertensive heart and chronic kidney disease with heart failure and stage 1 through stage 4 chronic kidney disease, or unspecified chronic kidney disease; F17.210 Nicotine dependence, cigarettes, uncomplicated; N18.3 Chronic kidney disease, stage 3 (moderate); G62.9 Polyneuropathy, unspecified; I25.5 Ischemic cardiomyopathy; E78.5 Hyperlipidemia, unspecified; I73.9 Peripheral vascular disease, unspecified; I25.2 Old myocardial infarction; J44.9 Chronic obstructive pulmonary disease, unspecified; Z89.612 Acquired absence of left leg above knee; Z79.51 Long term (current) use of inhaled steroids; Z79.02 Long term (current) use of antithrombotics/antiplatelets; Z79.82 Long term (current) use of aspirin; Z95.5 Presence of coronary angioplasty implant and graft
CPT/HCPCS: A9500; A9540; A9567; G0378; J1644; J2785; J7040

== ENCOUNTER → 2019-11-29 | Outpatient (CLI) | payer MEDICAID | LOC: ZCOL.LAB 14:41 | DX: R06.02 Shortness of breath (principal) ==

== ENCOUNTER 2019-12-19 03:21 | Inpatient (IN) | payer MEDICAID ==
[~2019-12-19] VITALS: Ht 177.8 cm; Wt 56.1 kg
[2019-12-19 04:14] LABS: BASO % 0.4 % (0.0-2.0); EOS % 0.1 % (0-4.0); GRAN # 8.7 (1.4-6.5); GRAN % 78.2 % (42.2-75.2); HEMATOCRIT 37.6 % (42.0-52.0); HEMOGLOBIN 12.3 g/dl (13.5-18.0); LYMPH # 1.7 (1.2-3.4); LYMPH % 14.9 % (20.0-51.0); MEAN CELL VOLUME 89 fl (80.0-100.0); MEAN CORPUSCULAR HEMOGLOBIN 29 pg (27.0-31.0); MEAN CORPUSCULAR HGB CONC 33 g/dl (33.0-37.0); MEAN PLATELET VOLUME 10.6 fl (7.4-10.4); MONO # 0.7 (0.1-0.6); MONO % 6.1 % (1.7-9.3); PLATELET COUNT 201 K/mm3 (130-400); RED BLOOD COUNT 4.21 M/mm3 (4.20-5.60); REDCELL DISTRIBUTION WIDTH-CV 15.9 % (11.5-14.5)
[2019-12-19 04:23] LABS: ALBUMIN 4.1 gm/dL (3.5-5.0); BILIRUBIN,TOTAL 0.8 mg/dL (0.0-1.0); CREATININE, serum 1.29 (0.66-1.25); POTASSIUM 4.3 mmol/L (3.4-5.0); TOTAL PROTEIN 7.4 gm/dL (6.4-8.2)
[2019-12-19 04:39] LABS: TROPONIN-I 0.104 ng/mL (0.000-0.035)
[2019-12-19] MEDS ORDERED: LASIX 20MG TABL20 MG PO (06:37)
[2019-12-19 09:41] VITALS: BP 156/99; PULSE 100; TEMP 97.9
--- NOTE | 2019-12-19 09:45 | NUR ---
Patient to room 311 by wheelchair from ED. Nurse oriented patient to room, call light and bed. VSS 1L NC O2. No SOB reported. IV CDI. No further needs expressed from patient. Call light withinr reach
[2019-12-19] MEDS ORDERED: NEURONTIN300 MG/CAP PO (11:21)
[2019-12-19] MEDS ORDERED: NITRO-DUR0.4 MG/PAT TD (11:22)
[2019-12-19 11:35] VITALS: BP 129/85; PULSE 94; TEMP 98.2
[2019-12-19 15:08] VITALS: BP 150/94; PULSE 82; TEMP 98.7
[2019-12-19 15:40] LABS: TRICYCLIC ANTIDEPRESS URINE NEGATIVE
--- NOTE | 2019-12-19 16:20 | NUR ---
Salt Washer met with patient to discuss discharge planning. Patient lives alone in [place] and sees Dr. Russell for primary care. Patient obtains medications from [facility] with no difficulties. Patient has a walker, electric wheelchair, and manual wheelchair at home. Patient uses his manual chair most of the time to assist with ambulation. Patient reports independence with ADLS. Patient states his mother Ying (ph#[phone]) is his DPOA-HC. Patient states he plans to return home upon discharge and has transportation available.
--- NOTE | 2019-12-19 18:29 | NUR ---
Patient had an uneventful day. Spent most of the shift resting in bed. VSS. IV CDI. Denies pain, discomfort and SOB. On room air. No further needs expressed from patient. Call light within reach
[2019-12-19 19:17] VITALS: BP 136/84; PULSE 85; TEMP 97.7
--- NOTE | 2019-12-19 21:00 | NUR ---
Sitting in bed. Assessment complete. Right lung dimished. Left lung clear. Heart sounds normal. Bowels active x4. Pulses present throughout. No edema noted. INT left AC flushed without complications. Denies pain. Nitro patch left chest removed. Provided with snack and fresh water. Call light in reach.
[2019-12-19 23:51] VITALS: BP 136/95; PULSE 77; TEMP 97.9
[2019-12-20 03:59] VITALS: BP 114/82; PULSE 84; TEMP 97.8
--- NOTE | 2019-12-20 06:36 | NUR ---
Patient had uneventful night. Resting in bed this AM.
--- NOTE | 2019-12-20 07:41 | NUR ---
Report given to OSKAR Rome
[2019-12-20 07:42] LABS: BASO # 0.1 (0.0-0.2); BASO % 0.6 % (0.0-2.0); EOS # 0.1 (0.0-0.7); EOS % 0.9 % (0-4.0); GRAN # 6.8 (1.4-6.5); GRAN % 75.9 % (42.2-75.2); HEMATOCRIT 39.2 % (42.0-52.0); HEMOGLOBIN 12.9 g/dl (13.5-18.0); LYMPH # 1.4 (1.2-3.4); LYMPH % 15.3 % (20.0-51.0); MEAN CELL VOLUME 89 fl (80.0-100.0); MEAN CORPUSCULAR HEMOGLOBIN 29 pg (27.0-31.0); MEAN CORPUSCULAR HGB CONC 33 g/dl (33.0-37.0); MEAN PLATELET VOLUME 11.3 fl (7.4-10.4); MONO # 0.6 (0.1-0.6); MONO % 7.1 % (1.7-9.3); PLATELET COUNT 193 K/mm3 (130-400); RED BLOOD COUNT 4.41 M/mm3 (4.20-5.60); REDCELL DISTRIBUTION WIDTH-CV 15.6 % (11.5-14.5)
[2019-12-20 07:55] VITALS: BP 119/84; PULSE 89; TEMP 97.7
[2019-12-20 08:02] LABS: CALCIUM 8.8 mg/dL (8.4-10.2); CREATININE, serum 1.48 (0.66-1.25); MAGNESIUM 1.8 mg/dL (1.6-2.3); POTASSIUM 3.5 mmol/L (3.4-5.0)
[2019-12-20 08:12] LABS: TROPONIN-I 0.134 ng/mL (0.000-0.035)
--- NOTE | 2019-12-20 10:41 | NUR ---
Initial visit; Patient thanked Receiving Operator for looking in on him and keeping him in her prayers.
[2019-12-20 14:28] VITALS: BP 142/88; PULSE 92; TEMP 97.8
[2019-12-20 17:00] VITALS: BP 126/90; PULSE 92; TEMP 98
--- NOTE | 2019-12-20 17:57 | NUR ---
Pt has had uneventful day. Pt has slept off and on, ate some breakfast and lunch. Pt denies any pain, dizziness, SOB, N/V/D, chest pain. Medications administered per DEC. Pt on room air, breathing has been even and unlabored. Pt has LAC INT IV that flushes w/o complications. Lt BKA, pt gets around pretty well independently w/ minimal assistance. No concerns expressed throughout day.
[2019-12-20 19:29] VITALS: BP 140/96; PULSE 100; TEMP 99.3
--- NOTE | 2019-12-20 20:10 | NUR ---
Sitting in bed. Assessment complete. Lungs clear. Heart sounds normal. Bowels active x4. Pulses present. No edema noted. INT left AC flushed without complications. Denies pain. Denies needs. Call light in reach.
[2019-12-20 23:37] VITALS: BP 127/90; PULSE 95; TEMP 98.6
--- NOTE | 2019-12-21 01:15 | NUR ---
Requested snack. Provided to patient. Denies other needs. call light in reach.
[2019-12-21 03:46] VITALS: BP 124/93; PULSE 90; TEMP 98.1
--- NOTE | 2019-12-21 05:48 | NUR ---
Patient had uneventful night. Resting in bed this AM. Call light in reach.
[2019-12-21 06:18] LABS: BASO % 0.4 % (0.0-2.0); EOS # 0.1 (0.0-0.7); EOS % 1.4 % (0-4.0); GRAN # 6.8 (1.4-6.5); GRAN % 72.7 % (42.2-75.2); HEMOGLOBIN 14.4 g/dl (13.5-18.0); LYMPH # 1.6 (1.2-3.4); LYMPH % 17.1 % (20.0-51.0); MEAN CELL VOLUME 87 fl (80.0-100.0); MEAN CORPUSCULAR HEMOGLOBIN 29 pg (27.0-31.0); MEAN CORPUSCULAR HGB CONC 34 g/dl (33.0-37.0); MEAN PLATELET VOLUME 11.5 fl (7.4-10.4); MONO # 0.8 (0.1-0.6); PLATELET COUNT 211 K/mm3 (130-400); RED BLOOD COUNT 4.92 M/mm3 (4.20-5.60); REDCELL DISTRIBUTION WIDTH-CV 15.5 % (11.5-14.5)
[2019-12-21 06:30] LABS: CALCIUM 8.8 mg/dL (8.4-10.2); CREATININE, serum 1.57 (0.66-1.25); POTASSIUM 3.8 mmol/L (3.4-5.0)
--- NOTE | 2019-12-21 06:58 | NUR ---
Report given to OSKAR Rome
[2019-12-21 08:19] VITALS: BP 126/87; BP 1276/87; PULSE 92; TEMP 98.7
[2019-12-21] MEDS ORDERED: LASIX 40MG TABL40 MG PO (09:13)
--- NOTE | 2019-12-21 09:48 | NUR ---
Pt assessment completed and charted. Morning medications administered per DEC. Pt sitting in bed, A&O, denies any pain, SOB, dizziness, N/V/D. Pt to discharge this morning. LAC INT IV flushes w/o complications. No concerns expressed at this time.
--- NOTE | 2019-12-21 11:40 | NUR ---
Pt discharge instructions discussed and reviewed with pt who verbalized understanding. LAC INT IV dc'd w/ catheter tip intact. All questions answered, no further needs. Pt awaiting ride.
[2019-12-21 11:45] VITALS: BP 125/78; PULSE 93; TEMP 97.7
--- NOTE | 2019-12-21 12:30 | NUR ---
Pt discharged, escorted out via wc by OSKAR Meza.
== END 2019-12-21 12:30 | disposition home or self-care (01) | DRG 303 ==
LOC: COL.ER 03:21 → MEDICAL 06:37
PROVIDERS: Emergency Medicine; Physician Assistant; ADMIT Student in an Organized Health Care Education/Training Program
DX: I25.5 Ischemic cardiomyopathy (principal); I25.10 Atherosclerotic heart disease of native coronary artery without angina pectoris; I12.9 Hypertensive chronic kidney disease with stage 1 through stage 4 chronic kidney disease, or unspecified chronic kidney disease; N18.3 Chronic kidney disease, stage 3 (moderate); I08.1 Rheumatic disorders of both mitral and tricuspid valves; I73.9 Peripheral vascular disease, unspecified; G62.9 Polyneuropathy, unspecified; F17.210 Nicotine dependence, cigarettes, uncomplicated; R79.89 Other specified abnormal findings of blood chemistry; D72.829 Elevated white blood cell count, unspecified; Z79.82 Long term (current) use of aspirin; Z89.612 Acquired absence of left leg above knee; Z95.5 Presence of coronary angioplasty implant and graft
CPT/HCPCS: 99223-AI; 99232-AI; 99239; J1940

== ENCOUNTER 2019-12-21 19:54 | Observation (INO) | payer MEDICAID ==
[~2019-12-21] VITALS: Ht 177.8 cm; Wt 57.3 kg
[2019-12-21 20:19] VITALS: BP 93/67; PULSE 94
[2019-12-21 20:49] LABS: BASO # 0.1 (0.0-0.2); BASO % 0.4 % (0.0-2.0); EOS # 0.1 (0.0-0.7); EOS % 0.5 % (0-4.0); GRAN # 11.1 (1.4-6.5); GRAN % 82.2 % (42.2-75.2); HEMATOCRIT 44.5 % (42.0-52.0); HEMOGLOBIN 14.8 g/dl (13.5-18.0); LYMPH # 1.3 (1.2-3.4); LYMPH % 9.5 % (20.0-51.0); MEAN CELL VOLUME 88 fl (80.0-100.0); MEAN CORPUSCULAR HEMOGLOBIN 29 pg (27.0-31.0); MEAN CORPUSCULAR HGB CONC 33 g/dl (33.0-37.0); MEAN PLATELET VOLUME 11.3 fl (7.4-10.4); MONO % 7.1 % (1.7-9.3); PLATELET COUNT 234 K/mm3 (130-400); RED BLOOD COUNT 5.06 M/mm3 (4.20-5.60); REDCELL DISTRIBUTION WIDTH-CV 15.7 % (11.5-14.5)
[2019-12-21 20:57] LABS: ALBUMIN 4.4 gm/dL (3.5-5.0); BILIRUBIN,TOTAL 0.6 mg/dL (0.0-1.0); CALCIUM 9.3 mg/dL (8.4-10.2); CREATININE, serum 2.47 (0.66-1.25); POTASSIUM 4.3 mmol/L (3.4-5.0); TOTAL PROTEIN 7.7 gm/dL (6.4-8.2)
[2019-12-21 21:16] LABS: TROPONIN-I 0.094 ng/mL (0.000-0.035)
--- NOTE | 2019-12-22 | NUR ---
Arrived from ED. Assessment complete. Lungs clear. Heart sounds normal. Bowels active x4. Pulses present throughout. No edema noted. Orientated to medical floor. Denies needs at this time. Call light in reach.
[2019-12-22 04:09] VITALS: BP 96/47; PULSE 76; TEMP 97.8
[2019-12-22 04:46] VITALS: BP 113/89; PULSE 79; TEMP 97.8
--- NOTE | 2019-12-22 06:02 | NUR ---
Patient had uneventful night. Resting in bed this AM.
--- NOTE | 2019-12-22 07:39 | NUR ---
Report given to OSKAR Oropeza
[2019-12-22 08:00] VITALS: BP 100/66; PULSE 70; TEMP 97.3
[2019-12-22 08:22] LABS: BASO % 0.5 % (0.0-2.0); EOS # 0.1 (0.0-0.7); EOS % 1.5 % (0-4.0); GRAN # 4.9 (1.4-6.5); GRAN % 61.7 % (42.2-75.2); HEMOGLOBIN 14.2 g/dl (13.5-18.0); LYMPH % 25.5 % (20.0-51.0); MEAN CELL VOLUME 87 fl (80.0-100.0); MEAN CORPUSCULAR HEMOGLOBIN 29 pg (27.0-31.0); MEAN CORPUSCULAR HGB CONC 34 g/dl (33.0-37.0); MEAN PLATELET VOLUME 11.1 fl (7.4-10.4); MONO # 0.8 (0.1-0.6); MONO % 10.5 % (1.7-9.3); PLATELET COUNT 199 K/mm3 (130-400); RED BLOOD COUNT 4.85 M/mm3 (4.20-5.60); REDCELL DISTRIBUTION WIDTH-CV 15.4 % (11.5-14.5)
[2019-12-22 08:30] LABS: CALCIUM 8.5 mg/dL (8.4-10.2); CREATININE, serum 2.23 (0.66-1.25); POTASSIUM 3.9 mmol/L (3.4-5.0)
--- NOTE | 2019-12-22 09:30 | NUR ---
Patient resting in bed at this time. Patient rouses easily and is alert and oriented while awake. Patient denies pain, dizziness, nausea, or vomiting at this time. Patient also denies needs, call light within reach.
--- NOTE | 2019-12-22 10:57 | NUR ---
Drosser attended clinical rounds with the team. Hospitalist discussed readmission. Patient was discharged home yesterday in the morning and then presented to the ER later that same evening. Patient states he felt okay when he went home, took his medications as prescribed, then started feeling unwell. Hospitalist discussed adjusting patient's medications. SW met with patient to discuss discharge planning. Patient lives alone in [place] and sees Dr. Russell for primary care. Patient obtains medications from [facility] with no difficulties. Patient has a walker and manual wheelchair that he uses at home to assist with ambulation. Patient has an electric scooter but the batteries are . Patient is independent with ADLS and states he does fine at home, it was just the medications that caused the readmission. Patient has DPOA-HC documents located in the EMR that designate patient's mother Ying (ph#[phone]). Patient states he is ready to go home and has no concerns about doing so. No additional needs identified at this time. SW to continue to follow as needed.
[2019-12-22 11:35] VITALS: BP 104/73; PULSE 98; TEMP 97.7
--- NOTE | 2019-12-22 15:40 | NUR ---
Discharge teaching completed. Discussed holding cardiac medications and keeping follow up appointments. Patient verbalizes understanding. INT removed, catheter intact, hemostasis achieved. Patient escorted by medical staff via wheelchair to ED entrance where he entered a private vehicle.
== END 2019-12-22 15:40 | disposition home or self-care (01) ==
LOC: COL.ER 19:54 → MEDICAL 22:20
PROVIDERS: Emergency Medicine; Nurse Practitioner Family; ADMIT Hospitalist
DX: I95.1 Orthostatic hypotension (principal); I12.9 Hypertensive chronic kidney disease with stage 1 through stage 4 chronic kidney disease, or unspecified chronic kidney disease; N18.3 Chronic kidney disease, stage 3 (moderate); E78.5 Hyperlipidemia, unspecified; I25.10 Atherosclerotic heart disease of native coronary artery without angina pectoris; I25.5 Ischemic cardiomyopathy; I73.9 Peripheral vascular disease, unspecified; G62.9 Polyneuropathy, unspecified; N17.9 Acute kidney failure, unspecified; Z79.02 Long term (current) use of antithrombotics/antiplatelets; Z79.82 Long term (current) use of aspirin; Z89.612 Acquired absence of left leg above knee; F17.210 Nicotine dependence, cigarettes, uncomplicated
CPT/HCPCS: G0378

== ENCOUNTER 2020-01-25 00:18 | Inpatient (IN) | payer MEDICAID ==
[2020-01-25] VITALS (7 sets, daily range): BP systolic 131–166; BP diastolic 80–138; PULSE 81–112; TEMP 97.3–98.4
[~2020-01-25] VITALS: Ht 175.3 cm; Wt 52.6 kg
[2020-01-25 00:32] LABS: BASO % 0.4 % (0.0-2.0); EOS % 0.3 % (0-4.0); GRAN # 7.8 (1.4-6.5); GRAN % 73.5 % (42.2-75.2); HEMATOCRIT 39.1 % (42.0-52.0); HEMOGLOBIN 12.6 g/dl (13.5-18.0); LYMPH % 18.6 % (20.0-51.0); MEAN CELL VOLUME 91 fl (80.0-100.0); MEAN CORPUSCULAR HEMOGLOBIN 29 pg (27.0-31.0); MEAN CORPUSCULAR HGB CONC 32 g/dl (33.0-37.0); MEAN PLATELET VOLUME 11.9 fl (7.4-10.4); MONO # 0.7 (0.1-0.6); MONO % 6.9 % (1.7-9.3); PLATELET COUNT 171 K/mm3 (130-400); RED BLOOD COUNT 4.28 M/mm3 (4.20-5.60); REDCELL DISTRIBUTION WIDTH-CV 18.5 % (11.5-14.5)
[2020-01-25 02:00] LABS: ALBUMIN 4.2 gm/dL (3.5-5.0); BILIRUBIN,TOTAL 0.9 mg/dL (0.0-1.0); CREATININE, serum 1.6 (0.66-1.25); PHOSPHOROUS 4.1 mg/dL (2.5-4.5); POTASSIUM 4.2 mmol/L (3.4-5.0); TOTAL PROTEIN 7.6 gm/dL (6.4-8.2)
[2020-01-25 02:15] LABS: TROPONIN-I 0.089 ng/mL (0.000-0.035)
--- NOTE | 2020-01-25 03:03 | NUR ---
Received report from ROSA Parkinson RN.
--- NOTE | 2020-01-25 03:10 | NUR ---
Pt arrived to medical unit room 353 via wc.
--- NOTE | 2020-01-25 03:51 | NUR ---
Alert and oriented x4. Denies any pain or discomfort at this time. Denies SOB, on 2LO2NC. Left AKA, uses walker and has prosthetic at home. Hospital walker provided to pt. Tele monitor placed. INT to RAC intact, flushed, dressing CDI. BRANDON Calvert with pt at this time. Med rec completed.
[2020-01-25 04:11] LABS: TROPONIN-I 3 HR POST INITIAL 0.09 ng/mL (0.000-0.034)
[2020-01-25 04:28] LABS: TSH w REFLEX 1.72 uIU/mL (0.465-4.680)
--- NOTE | 2020-01-25 07:00 | NUR ---
Report given to OSKAR Frausto.
[2020-01-25 07:07] LABS: CALCIUM 9.1 mg/dL (8.4-10.2); CREATININE, serum 1.57 (0.66-1.25); POTASSIUM 4.9 mmol/L (3.4-5.0)
[2020-01-25 07:26] LABS: TROPONIN-I 6 HR POST INITIAL 0.09 ng/mL (0.000-0.034)
--- NOTE | 2020-01-25 08:31 | NUR ---
Contacted by Girlfriend. States she is concerned about his home life. Girlfriend states lives with Mother and he is not wearing his prosthetic at home noting that it hurts and does not fit right. Per report from OSKAR Bradley pt lives at home alone. Will continue to be in contact with Keena (girlfriend), during this shift.
--- NOTE | 2020-01-25 10:02 | NUR ---
Clinical Program Manager met with patient to discuss discharge planning. Patient normally lives alone in [place] but has been staying with his mom, Ying (ph#[phone]) for the time being. Patient sees Dr. Russell for primary care and obtains medications from [facility] with no difficulties. Patient has a wheelchair and walker and reports he is independent with transfers in and out of his wheelchair. Patient reports independence with all other ADLS. Patient states his mom Ying is his DPOA. Patient plans to return to his mom's home upon discharge. SW to continue to follow as needed.
--- NOTE | 2020-01-25 10:09 | NUR ---
PATIENT RESTING COMFORTABLY IN BED, VSS, NO COMPLAINTS OF CHEST PAIN OR DIZZINESS. STILL HAVING SOA. SEEN BY HOSPITALIST, PLAN TO RESTART METOPROLOL AND LIPITOR, WILL START PO LASIX 20 MG BID AND NITRO PATCH DAILY. PATIENT WILL DIURESE FOR A COUPLE OF DAYS AND DC. NOT YET SEEN BY CC TEAM.
--- NOTE | 2020-01-25 18:59 | NUR ---
Pt had an uneventful day. He has slept the majority of the day. He is able to move about the room with his walker, and is compliant in using it. He is stable, and has no problems with that. Pt has not been eating his meals. Pt states he is not in pain, and has no concerns. Today Dr. Elizabeth placed him back on medications that the pt had stopped taking on his own. He will get lasix, as well as other medications that have been restarted, and then should return home. SW has been consulted for possible home health. Dr. Fatima is setting up weekly telehealth appointments to help this patient keep up with his medications. Report given to OSKAR Hunter. Transfer of care compelted.
--- NOTE | 2020-01-25 20:00 | NUR ---
Received report from OSKAR Frausto. Pt sitting at side of bed. Alert and oriented. Denies any pain, SOB, or discomfort at this time. Scheduled meds administered. VSS. Tele monitor in place, leads checked. On 2LO2NC, LCTAB. INT to RAC intact, flushed, dressing CDI. Needs met at this time. Walker at bedside. Call light within reach.
[2020-01-26 04:19] VITALS: BP 129/87; PULSE 80; TEMP 98
--- NOTE | 2020-01-26 05:50 | NUR ---
Pt made no complaints during this shift.
[2020-01-26 05:53] LABS: BASO % 0.3 % (0.0-2.0); EOS # 0.1 (0.0-0.7); EOS % 0.9 % (0-4.0); GRAN # 7.5 (1.4-6.5); GRAN % 77.1 % (42.2-75.2); HEMATOCRIT 38.3 % (42.0-52.0); HEMOGLOBIN 12.5 g/dl (13.5-18.0); LYMPH # 1.4 (1.2-3.4); MEAN CELL VOLUME 91 fl (80.0-100.0); MEAN CORPUSCULAR HEMOGLOBIN 30 pg (27.0-31.0); MEAN CORPUSCULAR HGB CONC 33 g/dl (33.0-37.0); MEAN PLATELET VOLUME 12.3 fl (7.4-10.4); MONO # 0.7 (0.1-0.6); MONO % 7.5 % (1.7-9.3); PLATELET COUNT 176 K/mm3 (130-400); RED BLOOD COUNT 4.19 M/mm3 (4.20-5.60); REDCELL DISTRIBUTION WIDTH-CV 17.9 % (11.5-14.5)
[2020-01-26 06:05] LABS: CALCIUM 8.7 mg/dL (8.4-10.2); CREATININE, serum 1.65 (0.66-1.25); POTASSIUM 4.2 mmol/L (3.4-5.0)
--- NOTE | 2020-01-26 06:54 | NUR ---
Report given to OSKAR Brennan.
[2020-01-26 07:53] VITALS: BP 125/82; PULSE 79; TEMP 97.9
[2020-01-26] MEDS ORDERED: LASIX 20MG TABL20 MG PO (10:44)
[2020-01-26] MEDS ORDERED: ENTRESTO 24 MG1 EACH PO (10:44)
--- NOTE | 2020-01-26 11:06 | NUR ---
Patient has been resting off and on this morning. I have had a call from his mother who was irritated and wanting to speak with the provider as soon as possible. I did explain to her that it wasnt currently possible but would pass along the message. She stated if they werent going to call her, I was to give his number to her and she would call him. I explained that was not possible. I did provide provider with her name and number. He stated he would contact her later. I did also receive call from a sister who wanted to speak with the patient and I did check on patient and he was asleep. She stated she would call back later. When I did administer patients medication he was awake and alert, denied pain, respirations were even and nonlabored. Call light and personal items are within reach.
[2020-01-26 12:22] VITALS: BP 132/93; PULSE 87; TEMP 97.9
--- NOTE | 2020-01-26 12:43 | NUR ---
Precast Concrete Products Installer was notified by RNLisbet yesterday that patient's girlfriend, Keena inquired about Home Health for patient. DAVID met with patient who is agreeable to HH services. DAVID provided Medicare.gov list of agencies that serve [place]. Patient selected [facility]. DAVID faxed referral. Melodie from [facility] advised that they cannot accept patient's insurance, which is [place]. DAVID faxed referral to [facility] as they are able to accept Medicaid. DAVID obtained confirmation from Shante at [facility] that they can accept this referral. DAVID met with patient to provide update and he is agreeable to [facility]. DAVID contacted patient's girlfriend, Keena to provide update. DAVID provided update to JIM Castro. DAVID faxed discharge orders to Shante at [facility]. No additional needs at this time.
--- NOTE | 2020-01-26 16:05 | NUR ---
Patient discharged home via private vehicle. Assisted to private vehicle via wheelchair. Personal belongings with patient.
== END 2020-01-26 14:10 | disposition home or self-care (01) | DRG 291 ==
LOC: COL.ER 00:18 → MEDICAL 02:20
PROVIDERS: Emergency Medicine; Physician Assistant; ADMIT Internal Medicine
DX: I13.0 Hypertensive heart and chronic kidney disease with heart failure and stage 1 through stage 4 chronic kidney disease, or unspecified chronic kidney disease (principal); I50.23 Acute on chronic systolic (congestive) heart failure; I25.5 Ischemic cardiomyopathy; N18.3 Chronic kidney disease, stage 3 (moderate); I25.10 Atherosclerotic heart disease of native coronary artery without angina pectoris; E78.5 Hyperlipidemia, unspecified; R00.0 Tachycardia, unspecified; I16.0 Hypertensive urgency; I27.20 Pulmonary hypertension, unspecified; G62.9 Polyneuropathy, unspecified; R79.89 Other specified abnormal findings of blood chemistry; F17.200 Nicotine dependence, unspecified, uncomplicated; F19.10 Other psychoactive substance abuse, uncomplicated; I73.9 Peripheral vascular disease, unspecified; Z89.612 Acquired absence of left leg above knee
CPT/HCPCS: 99222-AI; 99239; J1644; J1940; J2405

== ENCOUNTER 2020-09-20 10:47 | Emergency (ER) | payer MEDICAID ==
[~2020-09-20] VITALS: Ht 175.3 cm; Wt 50.0 kg
[2020-09-20 13:51] LABS: BASO % 0.4 % (0.0-2.0); EOS % 0.1 % (0-4.0); GRAN # 6.2 (1.4-6.5); GRAN % 76.8 % (42.2-75.2); HEMATOCRIT 42.8 % (42.0-52.0); HEMOGLOBIN 14.3 g/dl (13.5-18.0); LYMPH # 1.3 (1.2-3.4); LYMPH % 16.3 % (20.0-51.0); MEAN CELL VOLUME 89 fl (80.0-100.0); MEAN CORPUSCULAR HEMOGLOBIN 30 pg (27.0-31.0); MEAN CORPUSCULAR HGB CONC 33 g/dl (33.0-37.0); MEAN PLATELET VOLUME 11.7 fl (7.4-10.4); MONO # 0.5 (0.1-0.6); MONO % 6.2 % (1.7-9.3); PLATELET COUNT 147 K/mm3 (130-400); RED BLOOD COUNT 4.83 M/mm3 (4.20-5.60); REDCELL DISTRIBUTION WIDTH-CV 14.7 % (11.5-14.5)
[2020-09-20 13:59] LABS: BILIRUBIN,TOTAL 0.5 mg/dL (0.0-1.0); CALCIUM 9.3 mg/dL (8.4-10.2); CREATININE, serum 1.6 (0.66-1.25); POTASSIUM 5.3 mmol/L (3.4-5.0); TOTAL PROTEIN 7.2 gm/dL (6.4-8.2)
[2020-09-20 14:11] LABS: TROPONIN-I 0.03 ng/mL (0.000-0.035)
[2020-09-20 15:19] VITALS: BP 125/75; PULSE 72; TEMP 97.9
[2020-09-20] MEDS ORDERED: ULTRAM 50MG TAB50 MG PO (18:22)
[2020-09-24] MEDS ORDERED: VISTARIL 2525 MG/CAP PO (13:33)
== END 2020-09-20 15:15 | disposition home or self-care (01) ==
LOC: COL.ER 10:47
PROVIDERS: Emergency Medicine
DX: J06.9 Acute upper respiratory infection, unspecified (principal); I13.10 Hypertensive heart and chronic kidney disease without heart failure, with stage 1 through stage 4 chronic kidney disease, or unspecified chronic kidney disease; N18.9 Chronic kidney disease, unspecified; E87.5 Hyperkalemia; I25.10 Atherosclerotic heart disease of native coronary artery without angina pectoris; E78.5 Hyperlipidemia, unspecified; F17.210 Nicotine dependence, cigarettes, uncomplicated; Z20.828 Contact with and (suspected) exposure to other viral communicable diseases; Z95.9 Presence of cardiac and vascular implant and graft, unspecified; Z79.02 Long term (current) use of antithrombotics/antiplatelets; Z79.82 Long term (current) use of aspirin

== ENCOUNTER 2020-09-20 16:59 | Emergency (ER) | payer MEDICAID ==
[~2020-09-20] VITALS: Ht 175.3 cm; Wt 50.0 kg
[2020-09-20] MEDS ORDERED: ULTRAM 50MG TAB50 MG PO (18:22)
[2020-09-20 18:55] VITALS: BP 138/78; PULSE 72; TEMP 97.7
[2020-09-24] MEDS ORDERED: VISTARIL 2525 MG/CAP PO (13:33)
== END 2020-09-20 18:55 | disposition home or self-care (01) ==
LOC: COL.ER 16:59
DX: J06.9 Acute upper respiratory infection, unspecified (principal); I13.0 Hypertensive heart and chronic kidney disease with heart failure and stage 1 through stage 4 chronic kidney disease, or unspecified chronic kidney disease; N18.9 Chronic kidney disease, unspecified; Z91.14 Patient's other noncompliance with medication regimen; I25.10 Atherosclerotic heart disease of native coronary artery without angina pectoris; Z95.5 Presence of coronary angioplasty implant and graft; Z20.828 Contact with and (suspected) exposure to other viral communicable diseases; Z79.82 Long term (current) use of aspirin; Z79.02 Long term (current) use of antithrombotics/antiplatelets

== ENCOUNTER 2020-09-27 08:19 | Emergency (ER) | payer MEDICAID ==
[~2020-09-27] VITALS: Ht 177.8 cm; Wt 61.4 kg
[~2020-09-27 08:19] MED LIST changes: +ULTRAM 50MG TAB50 MG PO; +VISTARIL 2525 MG/CAP PO
[2020-09-27 08:31] VITALS: TEMP 97.9
[2020-09-27] MEDS ORDERED: ULTRAM 50MG TAB50 MG PO (08:51)
[2020-09-27 10:39] VITALS: BP 137/91; PULSE 61
== END 2020-09-27 10:40 | disposition home or self-care (01) ==
LOC: COL.ER 08:19
DX: F41.9 Anxiety disorder, unspecified (principal); I13.0 Hypertensive heart and chronic kidney disease with heart failure and stage 1 through stage 4 chronic kidney disease, or unspecified chronic kidney disease; N18.9 Chronic kidney disease, unspecified; I50.9 Heart failure, unspecified; I25.2 Old myocardial infarction; I25.10 Atherosclerotic heart disease of native coronary artery without angina pectoris; F17.210 Nicotine dependence, cigarettes, uncomplicated; Z98.61 Coronary angioplasty status; Z89.612 Acquired absence of left leg above knee; Z79.02 Long term (current) use of antithrombotics/antiplatelets; Z79.82 Long term (current) use of aspirin; Z79.891 Long term (current) use of opiate analgesic

== ENCOUNTER → 2020-09-28 | Emergency (ER) | payer MEDICAID ==
[~2020-09-28] VITALS: Ht 175.3 cm; Wt 51.4 kg
[2020-09-28 08:38] VITALS: TEMP 97.6
[2020-09-28 09:31] LABS: TRICYCLIC ANTIDEPRESS URINE NEGATIVE
[2020-09-28 10:26] LABS: BASO % 0.4 % (0.0-2.0); EOS % 0.2 % (0-4.0); GRAN # 7.7 (1.4-6.5); GRAN % 82.4 % (42.2-75.2); HEMATOCRIT 43.3 % (42.0-52.0); HEMOGLOBIN 14.2 g/dl (13.5-18.0); LYMPH # 1.1 (1.2-3.4); LYMPH % 11.8 % (20.0-51.0); MEAN CELL VOLUME 89 fl (80.0-100.0); MEAN CORPUSCULAR HEMOGLOBIN 29 pg (27.0-31.0); MEAN CORPUSCULAR HGB CONC 33 g/dl (33.0-37.0); MEAN PLATELET VOLUME 11.7 fl (7.4-10.4); MONO # 0.5 (0.1-0.6); PLATELET COUNT 126 K/mm3 (130-400); RED BLOOD COUNT 4.88 M/mm3 (4.20-5.60)
[2020-09-28 10:34] LABS: ALBUMIN 4.3 gm/dL (3.5-5.0); BILIRUBIN,TOTAL 0.5 mg/dL (0.0-1.0); CREATININE, serum 1.55 (0.66-1.25); POTASSIUM 4.6 mmol/L (3.4-5.0); TOTAL PROTEIN 7.6 gm/dL (6.4-8.2)
--- NOTE | 2020-09-28 14:19 | NUR ---
Developmental Writing Instructor responded to consult in the ED for patient as he has had multiple visits. SW met with patient who reports he keeps coming into the ED because he does not feel well and also has been experiencing some anxiety. Patient has been staying with his mother, Ying (ph#[phone]). Patient sees Dr. Russell for primary care and reports he last had an appointment with her on 09/25/20. Patient states he has a telehealth visit with Dr. Russell on Thursday. Patient confirmed this with Joi at Dr. Russell's office. Patient has a wheelchair, crutches, walker, and power chair at home. Patient has the PD Waiver through [employer] and his assistant case manager is Camille Castro. SW contacted Camille Castro who advised she would call patient this afternoon to follow up on his in home supports. SW spoke with patient about mental health services and patient was interested in having an appointment set up with [facility]. DAVID contacted Melany (ph#[phone]) at [facility] and she advised patient would have to complete intake packet before appointment is scheduled. DAVID obtained patient's email and current phone number and provided it to Melany. DAVID also asked Melany to follow up with this worker if patient does not follow up with paperwork. DAVID contacted patient's mother, Ying who advised she would chicken picker patient from the ED. DAVID collaborated the above information to RN and ED Physician. DAVID made APS report (intake#[id number])
[2020-09-30 08:11] VITALS: BP 127/74; PULSE 80
== END ==
LOC: COL.ER 08:33
PROVIDERS: Family Medicine
DX: F41.9 Anxiety disorder, unspecified (principal); N18.9 Chronic kidney disease, unspecified; Z79.02 Long term (current) use of antithrombotics/antiplatelets; Z79.82 Long term (current) use of aspirin

== ENCOUNTER 2020-11-30 16:42 | Emergency (ER) | payer MEDICAID ==
[~2020-11-30] VITALS: Ht 175.3 cm; Wt 56.2 kg
[2020-11-30 16:50] VITALS: TEMP 96.7
[2020-11-30] MEDS ORDERED: VELTASSA8.4 GM PO (17:00)
[2020-11-30] MEDS ORDERED: BUSPAR5 MG PO (17:04)
[2020-11-30 17:33] LABS: BASO % 0.5 % (0.0-2.0); EOS # 0.1 (0.0-0.7); GRAN # 5.7 (1.4-6.5); HEMATOCRIT 38.4 % (42.0-52.0); HEMOGLOBIN 12.7 g/dl (13.5-18.0); LYMPH # 1.9 (1.2-3.4); LYMPH % 22.3 % (20.0-51.0); MEAN CELL VOLUME 90 fl (80.0-100.0); MEAN CORPUSCULAR HEMOGLOBIN 30 pg (27.0-31.0); MEAN CORPUSCULAR HGB CONC 33 g/dl (33.0-37.0); MEAN PLATELET VOLUME 11.7 fl (7.4-10.4); MONO # 0.7 (0.1-0.6); PLATELET COUNT 165 K/mm3 (130-400); RED BLOOD COUNT 4.26 M/mm3 (4.20-5.60); REDCELL DISTRIBUTION WIDTH-CV 17.6 % (11.5-14.5)
[2020-11-30 17:36] LABS: ALBUMIN 3.9 gm/dL (3.5-5.0); BILIRUBIN,TOTAL 0.3 mg/dL (0.0-1.0); CALCIUM 8.5 mg/dL (8.4-10.2); CREATININE, serum 1.95 (0.66-1.25); POTASSIUM 4.5 mmol/L (3.4-5.0); TOTAL PROTEIN 6.9 gm/dL (6.4-8.2)
[2020-11-30 18:20] VITALS: BP 111/84; PULSE 80
== END 2020-11-30 18:21 | disposition home or self-care (01) ==
LOC: COL.ER 16:42
PROVIDERS: Family Medicine
DX: E11.22 Type 2 diabetes mellitus with diabetic chronic kidney disease (principal); I12.9 Hypertensive chronic kidney disease with stage 1 through stage 4 chronic kidney disease, or unspecified chronic kidney disease; N18.9 Chronic kidney disease, unspecified; I25.10 Atherosclerotic heart disease of native coronary artery without angina pectoris; Z98.61 Coronary angioplasty status; E78.5 Hyperlipidemia, unspecified; F17.200 Nicotine dependence, unspecified, uncomplicated; Z79.02 Long term (current) use of antithrombotics/antiplatelets; Z79.82 Long term (current) use of aspirin

== ENCOUNTER 2020-12-25 08:26 | Emergency (ER) | payer MEDICARE, MEDICAID ==
[~2020-12-25] VITALS: Ht 175.3 cm; Wt 55.5 kg
[~2020-12-25 08:26] MED LIST changes: +BUSPAR10 MG PO; +LIPITOR 80MG80 MG PO; +VELTASSA8.4 GM PO
[2020-12-25 08:39] VITALS: TEMP 97.5
[2020-12-25 10:18] LABS: BASO % 0.3 % (0.0-2.0); EOS % 0.1 % (0-4.0); GRAN # 9.5 (1.4-6.5); GRAN % 88.5 % (42.2-75.2); HEMATOCRIT 44.5 % (42.0-52.0); HEMOGLOBIN 14.8 g/dl (13.5-18.0); LYMPH # 0.8 (1.2-3.4); LYMPH % 7.8 % (20.0-51.0); MEAN CELL VOLUME 90 fl (80.0-100.0); MEAN CORPUSCULAR HEMOGLOBIN 30 pg (27.0-31.0); MEAN CORPUSCULAR HGB CONC 33 g/dl (33.0-37.0); MEAN PLATELET VOLUME 12.4 fl (7.4-10.4); MONO # 0.3 (0.1-0.6); PLATELET COUNT 128 K/mm3 (130-400); RED BLOOD COUNT 4.93 M/mm3 (4.20-5.60); REDCELL DISTRIBUTION WIDTH-CV 15.6 % (11.5-14.5)
[2020-12-25 10:26] LABS: CREATININE, serum 1.72 (0.66-1.25); POTASSIUM 4.9 mmol/L (3.4-5.0)
[2020-12-25 10:40] LABS: TROPONIN-I 0.046 ng/mL (0.000-0.035)
[2020-12-25 13:30] VITALS: BP 121/93; PULSE 57
== END 2020-12-25 13:45 | disposition home or self-care (01) ==
LOC: COL.ER 08:26
PROVIDERS: Emergency Medicine
DX: I13.0 Hypertensive heart and chronic kidney disease with heart failure and stage 1 through stage 4 chronic kidney disease, or unspecified chronic kidney disease (principal); N18.30 Chronic kidney disease, stage 3 unspecified; I25.10 Atherosclerotic heart disease of native coronary artery without angina pectoris; E78.5 Hyperlipidemia, unspecified; E87.5 Hyperkalemia; F17.210 Nicotine dependence, cigarettes, uncomplicated; Z79.02 Long term (current) use of antithrombotics/antiplatelets; Z79.82 Long term (current) use of aspirin

== ENCOUNTER 2020-12-26 13:34 | Emergency (ER) | payer MEDICARE, MEDICAID ==
[~2020-12-26] VITALS: Ht 175.3 cm; Wt 54.5 kg
[2020-12-26 13:54] VITALS: BP 157/82; TEMP 96.5
[2020-12-26 15:08] LABS: BASO % 0.2 % (0.0-2.0); GRAN % 81.2 % (42.2-75.2); HEMATOCRIT 46.8 % (42.0-52.0); HEMOGLOBIN 15.3 g/dl (13.5-18.0); MEAN CELL VOLUME 92 fl (80.0-100.0); MEAN CORPUSCULAR HEMOGLOBIN 30 pg (27.0-31.0); MEAN CORPUSCULAR HGB CONC 33 g/dl (33.0-37.0); MEAN PLATELET VOLUME 12.6 fl (7.4-10.4); MONO # 0.6 (0.1-0.6); MONO % 6.4 % (1.7-9.3); PLATELET COUNT 141 K/mm3 (130-400); RED BLOOD COUNT 5.11 M/mm3 (4.20-5.60); REDCELL DISTRIBUTION WIDTH-CV 15.7 % (11.5-14.5)
[2020-12-26 15:16] LABS: ALBUMIN 4.4 gm/dL (3.5-5.0); BILIRUBIN,TOTAL 0.5 mg/dL (0.0-1.0); CALCIUM 9.4 mg/dL (8.4-10.2); CREATININE, serum 1.76 (0.66-1.25); POTASSIUM 5.2 mmol/L (3.4-5.0)
[2020-12-26 15:37] LABS: COLLECTION METHOD CLEAN CATCH
[2020-12-26 16:10] LABS: MUCOUS Present /lpf; PH 5 (5-8); SQUAMOUS EPITHELIAL None Seen /hpf; URINE APPEARANCE Hazy; URINE BACTERIA None Seen /hpf; URINE BILIRUBIN Negative (NEGATIVE); URINE BLOOD Negative (NEGATIVE); URINE COLOR Yellow; URINE GLUCOSE Negative (NEGATIVE); URINE KETONE 1+ (NEGATIVE); URINE LEUKOCYTE ESTERASE Negative (NEGATIVE); URINE NITRATE Negative (NEGATIVE); URINE PROTEIN(semi-quant) 3+ (NEGATIVE); URINE UROBILINOGEN Negative (NEGATIVE)
[2020-12-26 18:00] VITALS: PULSE 98
== END 2020-12-26 18:01 | disposition home or self-care (01) ==
LOC: COL.ER 13:34
PROVIDERS: Physician Assistant
DX: I13.0 Hypertensive heart and chronic kidney disease with heart failure and stage 1 through stage 4 chronic kidney disease, or unspecified chronic kidney disease (principal); N18.30 Chronic kidney disease, stage 3 unspecified; I25.10 Atherosclerotic heart disease of native coronary artery without angina pectoris; E78.5 Hyperlipidemia, unspecified; F17.210 Nicotine dependence, cigarettes, uncomplicated; Z79.82 Long term (current) use of aspirin; Z79.02 Long term (current) use of antithrombotics/antiplatelets
CPT/HCPCS: J2405; J7030

== ENCOUNTER 2021-01-30 09:30 | Emergency (ER) | payer MEDICARE, MEDICAID ==
[~2021-01-30] VITALS: Ht 175.3 cm; Wt 54.5 kg
[2021-01-30 09:41] VITALS: TEMP 97.4
[2021-01-30 11:07] LABS: BASO % 0.3 % (0.0-2.0); GRAN % 85.7 % (42.2-75.2); HEMATOCRIT 45.6 % (42.0-52.0); HEMOGLOBIN 14.9 g/dl (13.5-18.0); LYMPH # 0.9 (1.2-3.4); LYMPH % 9.4 % (20.0-51.0); MEAN CELL VOLUME 90 fl (80.0-100.0); MEAN CORPUSCULAR HEMOGLOBIN 29 pg (27.0-31.0); MEAN CORPUSCULAR HGB CONC 33 g/dl (33.0-37.0); MEAN PLATELET VOLUME 12.2 fl (7.4-10.4); MONO # 0.4 (0.1-0.6); MONO % 4.5 % (1.7-9.3); PLATELET COUNT 122 K/mm3 (130-400); RED BLOOD COUNT 5.09 M/mm3 (4.20-5.60); REDCELL DISTRIBUTION WIDTH-CV 15.4 % (11.5-14.5)
[2021-01-30 11:15] LABS: ALBUMIN 4.2 gm/dL (3.5-5.0); BILIRUBIN,TOTAL 0.2 mg/dL (0.0-1.0); CALCIUM 9.1 mg/dL (8.4-10.2); CREATININE, serum 1.83 (0.66-1.25); POTASSIUM 4.7 mmol/L (3.4-5.0); TOTAL PROTEIN 7.7 gm/dL (6.4-8.2)
[2021-01-30 11:29] LABS: TROPONIN-I 0.049 ng/mL (0.000-0.035)
[2021-01-30] MEDS ORDERED: ZOFRAN ODT4 MG PO (13:05)
[2021-01-30 13:20] VITALS: BP 148/79; PULSE 71
[2021-01-31] MEDS ORDERED: LASIX 20MG TABL20 MG PO (13:35)
== END 2021-01-30 13:20 | disposition home or self-care (01) ==
LOC: COL.ER 09:30
PROVIDERS: Family Medicine
DX: I12.9 Hypertensive chronic kidney disease with stage 1 through stage 4 chronic kidney disease, or unspecified chronic kidney disease (principal); N18.9 Chronic kidney disease, unspecified; E11.22 Type 2 diabetes mellitus with diabetic chronic kidney disease; E78.5 Hyperlipidemia, unspecified; F17.210 Nicotine dependence, cigarettes, uncomplicated; Z79.02 Long term (current) use of antithrombotics/antiplatelets; Z79.82 Long term (current) use of aspirin
CPT/HCPCS: J2405; J2550; J7030

== ENCOUNTER 2021-01-31 07:50 | Observation (INO) | payer MEDICARE, MEDICAID ==
[~2021-01-31] VITALS: Ht 175.3 cm; Wt 54.5 kg
[~2021-01-31 07:50] MED LIST changes: +ZOFRAN ODT4 MG PO
[2021-01-31 08:40] LABS: BASO % 0.3 % (0.0-2.0); EOS % 0.3 % (0-4.0); GRAN # 5.4 (1.4-6.5); GRAN % 77.4 % (42.2-75.2); HEMATOCRIT 44.9 % (42.0-52.0); HEMOGLOBIN 14.7 g/dl (13.5-18.0); LYMPH % 14.5 % (20.0-51.0); MEAN CELL VOLUME 90 fl (80.0-100.0); MEAN CORPUSCULAR HEMOGLOBIN 30 pg (27.0-31.0); MEAN CORPUSCULAR HGB CONC 33 g/dl (33.0-37.0); MEAN PLATELET VOLUME 12.1 fl (7.4-10.4); MONO # 0.5 (0.1-0.6); MONO % 7.2 % (1.7-9.3); PLATELET COUNT 110 K/mm3 (130-400); RED BLOOD COUNT 4.98 M/mm3 (4.20-5.60); REDCELL DISTRIBUTION WIDTH-CV 15.8 % (11.5-14.5)
[2021-01-31 08:49] LABS: ALBUMIN 4.2 gm/dL (3.5-5.0); BILIRUBIN,TOTAL 0.4 mg/dL (0.0-1.0); CALCIUM 8.7 mg/dL (8.4-10.2); CREATININE, serum 1.65 (0.66-1.25); POTASSIUM 4.2 mmol/L (3.4-5.0); TOTAL PROTEIN 7.8 gm/dL (6.4-8.2)
[2021-01-31 09:19] LABS: TSH w REFLEX 0.544 uIU/mL (0.465-4.680)
[2021-01-31 09:22] LABS: TROPONIN-I 0.083 ng/mL (0.000-0.035)
[2021-01-31 11:57] VITALS: BP 162/87; PULSE 62; TEMP 98.1
[2021-01-31] MEDS ORDERED: LASIX 20MG TABL20 MG PO (13:35)
[2021-01-31 16:57] VITALS: BP 133/64; PULSE 64; TEMP 98.3
--- NOTE | 2021-01-31 17:06 | NUR ---
Pt admission, med rec, allergies completed. Pt A&O, independent in room w/ walker. Pt arrived from ER around 1230 to room 317. Pt denies SOB, dizziness, abd pain. Pt c/o of feeling "jittery" and "just not feeling well". Pt on room air, breathing is even and unlabored, LS cta, HRRR. BS active. 20G IV started to LWR, flushed well. Pt has Lt AKA. No edema noted, pulses palpable. Pt refused dinner tray, states he "doesn't have much of appetite". Pt placed on tele and 2000ml fluid restriction, discussed w/ pt who verbalized understanding. No further concerns at this time.
[2021-01-31 18:43] VITALS: BP 146/74; PULSE 56; TEMP 97.8
--- NOTE | 2021-01-31 18:43 | NUR ---
Pt called nurses station, stated he "wasn't feeling well, felt like he couldn't breathe". VS obtained, BP:146/74, T: 97.8, HR: 56, O2: 100% Room air. This nurse remained in pt room, pt denied dizziness, N/V/D, chest pain, chest tightness, visual changes. "Just feel like I can't take a deep breath". Encouraged slow controlled breaths. Pt was able to relax, moved to recliner, stated he felt a little better. Will report to nightshift. Encouraged pt to call if symptoms appeared again.
--- NOTE | 2021-01-31 20:20 | NUR ---
Initial shift assessment done- states does feel SOB at times, sats 99-100% on RA, denies chest pain, Pleasant, alert/oriented, VSS, Has L/AKA. Urinal at bedside.
[2021-01-31 22:27] VITALS: BP 146/88; PULSE 69; TEMP 98
[2021-02-01 04:09] VITALS: BP 142/81; PULSE 64; TEMP 98
--- NOTE | 2021-02-01 05:20 | NUR ---
Very quiet night- no requests, has blanket pulled over head ,sleeping most of the night. VSS. O2 sats 97% on RA. VSS. tele on.
[2021-02-01 08:00] VITALS: BP 148/78; PULSE 68; TEMP 97.8
--- NOTE | 2021-02-01 08:15 | NUR ---
PATIENT ALERT & ORIENTED. PATIENT ADMITTED FOR CHEST PAIN, NAUSEA, AND ELEVATED TROPONIN. PATIENT COMPLAINING OF SOB. OXYGEN SATURATION 99% ON RA. LUNG SOUNDS CLEAR AND UNLABORED BREATHS. RESPIRATORY RATE 24 SHALLOW. DENIES N/V ON LOW SODIUM DIET AND 2 L FLUID RESTRICTION. PATIENT DENIES PAIN AT THIS TIME. STATES HE HAS A COUGH WITH CLEAR SPUTUM PRODUCTION. IV LEFT WRIST TO INT WITH NO REDNESS, DRAINAGE, OR EDEMA. ALL OTHER ASSESSMENTS WNL. TELEMTRY NORMAL SINUS RHYTHM. ESTABLISHED L AKA. MORNING MEDICATIONS ADMINISTERED AT THIS TIME. WILL CONTINUE TO MONITOR AND EDUCATED PATIENT TO CALL IF SOB OCCURS AGAIN.
--- NOTE | 2021-02-01 08:17 | NUR ---
JIM AMARAL CALLED AND NOTIFIED THAT THE PATIENT IS REPORTING SOB THIS MORNING. SHIFT ASSESSMENT COMPLETED AND VITALS OBTAINED. VSS. 02 98% ON ROOM AIR. PATIENT DENYING COMPLAINTS OF CHEST PAIN. WILL CONTINUE MONITORING.
[2021-02-01 08:45] LABS: HEMATOCRIT 45.9 % (42.0-52.0); HEMOGLOBIN 14.9 g/dl (13.5-18.0); MEAN CELL VOLUME 91 fl (80.0-100.0); MEAN CORPUSCULAR HEMOGLOBIN 30 pg (27.0-31.0); MEAN CORPUSCULAR HGB CONC 33 g/dl (33.0-37.0); MEAN PLATELET VOLUME 12.4 fl (7.4-10.4); PLATELET COUNT 124 K/mm3 (130-400); RED BLOOD COUNT 5.05 M/mm3 (4.20-5.60); REDCELL DISTRIBUTION WIDTH-CV 15.6 % (11.5-14.5)
[2021-02-01 08:55] LABS: CALCIUM 8.9 mg/dL (8.4-10.2); CREATININE, serum 1.72 (0.66-1.25); POTASSIUM 4.3 mmol/L (3.4-5.0)
[2021-02-01 09:12] LABS: TROPONIN-I 0.095 ng/mL (0.000-0.035)
--- NOTE | 2021-02-01 09:17 | NUR ---
JIM AMARAL CALLED AND NOTIFIED OF CRITICAL TROPONIN RESULT OF 0.095 UP FROM 0.080. NO ORDERS GIVEN AT THIS TIME.
--- NOTE | 2021-02-01 10:13 | NUR ---
Several visit attempts; Cone Picker left prayer card with information regarding the availability of spiritual care and offering patient God's blessings.
[2021-02-01 11:24] VITALS: BP 166/83; PULSE 58; TEMP 97.5
--- NOTE | 2021-02-01 13:05 | NUR ---
PATIENT DISCHARGE INSTRUCTIONS REVIEWED WITH PATIENT AND FAMILY. QUESTIONS SOUGHT, PATIENT DENIES QUESTIONS. PATIENT PERSONAL BELONGINGS GATHERED. PATIENTS INT DISCONTINUED BY SN ROSY. THIS NURSE REVIEWED AND COMPLETED SHIFT ASSESSMENT WITH SN ROSY.
--- NOTE | 2021-02-01 13:10 | NUR ---
PATIENT TAKEN TO PERSONAL VEHICLE VIA WHEELCHAIR BY MEDICAL STAFF. PATIENT DISCHARGED.
--- NOTE | 2021-02-01 13:39 | NUR ---
DAVID met with the patient to discuss discharge plan. The patient lives alone in [place]. He states that his mother, Ying Berry (ph#[phone]), lives down the street from him and his sister lives next door to him. He reports independence with ADLs and does not have any DME. The patient's PCP is Dr. Hernandez Russell and he receives his medications from [facility] by delivery. He reports no difficulties obtaining his meds. He states that his next appointment with Dr. Russell is on Thursday. The patient's DPOA-HC is in EMR and it designates his mother. The patient plans to return home upon discharge. He states that he was approved for around 8 hours of private duty services from [address] [place] [address] and should start those services soon. He states that he just has to pick what private duty attendant he wants to help him. DAVID discussed home health services and their benefits. The patient was interested in home health and was agreeable to use the agency he had in the past. Per discharge planning notes, the patient had Caregivers in the past. DAVID contacted Yadira at [facility]. Yadira reports that they are not able to take any new referrals at this time. DAVID contacted and faxed a referral to Addie at [facility]. Jayashree reports that they would be able to take the patient and have someone out to see the patient tomorrow. The patient is to discharge back home today, 02/01, with home health services for assisted from [facility]. DAVID notified and faxed d/c orders to Jayashree at [facility]. No additional needs at this time.
== END 2021-02-01 13:10 | disposition home health service (06) ==
LOC: COL.ER 07:50 → MEDICAL 10:18
PROVIDERS: Emergency Medicine; Physician Assistant
DX: I13.0 Hypertensive heart and chronic kidney disease with heart failure and stage 1 through stage 4 chronic kidney disease, or unspecified chronic kidney disease (principal); I50.22 Chronic systolic (congestive) heart failure; I43 Cardiomyopathy in diseases classified elsewhere; N18.30 Chronic kidney disease, stage 3 unspecified; I25.10 Atherosclerotic heart disease of native coronary artery without angina pectoris; R79.89 Other specified abnormal findings of blood chemistry; J44.9 Chronic obstructive pulmonary disease, unspecified; R01.1 Cardiac murmur, unspecified; E78.5 Hyperlipidemia, unspecified; Z79.82 Long term (current) use of aspirin; F17.210 Nicotine dependence, cigarettes, uncomplicated; Z79.899 Other long term (current) drug therapy; Z79.02 Long term (current) use of antithrombotics/antiplatelets; Z89.612 Acquired absence of left leg above knee; Z95.5 Presence of coronary angioplasty implant and graft; Z91.19 Patient's noncompliance with other medical treatment and regimen
CPT/HCPCS: G0378; J1940

== ENCOUNTER 2021-03-22 09:15 | Day surgery (SDC) | payer MEDICARE, MEDICAID ==
[~2021-03-22] VITALS: Ht 175.3 cm; Wt 55.0 kg
[2021-03-22] MEDS ORDERED: VITAMIN D3400 I1 PO (10:30)
[2021-03-22] MEDS ORDERED: ONE-A-DAY ESSE1 EACH PO (10:30)
[2021-03-22 10:50] VITALS: BP 144/87; PULSE 64; TEMP 98.3
[2021-03-22 11:30] VITALS: BP 134/80; PULSE 57; TEMP 97.9
[2021-03-22 11:45] VITALS: BP 147/97; PULSE 62
--- NOTE | 2021-03-22 11:45 | NUR ---
Pt is awake, no pain or nausea. Dr. Keys to bedside and visits with pt. Pt denies needs, pt's brother is called at this time.
[2021-03-22 12:00] VITALS: BP 145/98; PULSE 61
--- NOTE | 2021-03-22 12:00 | NUR ---
Pt's IV discontinued, and discharge instructions given. Pt is AAOX3 and denies other needs. VSS.
[2021-03-22 12:03] VITALS: BP 134/80; PULSE 57
--- NOTE | 2021-03-22 12:08 | NUR ---
Pt to private vehicle with brother in law.
--- NOTE | 2021-03-22 13:11 | NUR ---
Pt back to [facility] via cart with GI nurse. Pt ambulates to chair with minimal assistance. Report obtained. VSS upon arrival. Butter and jelly with toast to bedside.
== END 2021-03-22 12:08 | disposition home or self-care (01) ==
LOC: SDCO 09:15
DX: Z12.11 Encounter for screening for malignant neoplasm of colon (principal); I25.10 Atherosclerotic heart disease of native coronary artery without angina pectoris; I25.5 Ischemic cardiomyopathy; I50.9 Heart failure, unspecified; J44.9 Chronic obstructive pulmonary disease, unspecified; I10 Essential (primary) hypertension; I25.2 Old myocardial infarction; I73.9 Peripheral vascular disease, unspecified; F17.210 Nicotine dependence, cigarettes, uncomplicated; Z79.82 Long term (current) use of aspirin; Z86.73 Personal history of transient ischemic attack (TIA), and cerebral infarction without residual deficits; Z79.899 Other long term (current) drug therapy; E78.5 Hyperlipidemia, unspecified
CPT/HCPCS: J2704

== ENCOUNTER → 2021-03-29 | Outpatient (CLI) | payer MEDICARE, MEDICAID ==
[~2021-03-29] MED LIST changes: +BUMEX 1MG TA1 MG/TA1 PO; +CEPHALEXIN500 M1 PO; +FARXIGA5 PO; +LOPRESSOR 225 MG/TAB PO; +MEGACE20 MG PO; +ONE-A-DAY ESSE1 EACH PO; +VITAMIN D250 MCG PO; +VITAMIN D3400 I1 PO
== END ==
LOC: COL.RAD 14:00
DX: Z12.2 Encounter for screening for malignant neoplasm of respiratory organs (principal); Z87.891 Personal history of nicotine dependence

== ENCOUNTER 2021-04-08 23:41 | Observation (INO) | payer MEDICARE, MEDICAID ==
[~2021-04-08] VITALS: Ht 175.3 cm; Wt 55.4 kg
[~2021-04-08 23:41] MED LIST changes: -BUMEX 1MG TA1 MG/TA1 PO; -CEPHALEXIN500 M1 PO; -FARXIGA5 PO; -LOPRESSOR 225 MG/TAB PO; -MEGACE20 MG PO; -VITAMIN D250 MCG PO
[2021-04-09 00:15] LABS: BASO % 0.2 % (0.0-2.0); EOS % 0.2 % (0-4.0); GRAN # 10.3 (1.4-6.5); GRAN % 84.9 % (42.2-75.2); HEMATOCRIT 43.7 % (42.0-52.0); HEMOGLOBIN 15.1 g/dl (13.5-18.0); LYMPH # 1.2 (1.2-3.4); LYMPH % 10.2 % (20.0-51.0); MEAN CELL VOLUME 85 fl (80.0-100.0); MEAN CORPUSCULAR HEMOGLOBIN 30 pg (27.0-31.0); MEAN CORPUSCULAR HGB CONC 35 g/dl (33.0-37.0); MEAN PLATELET VOLUME 11.2 fl (7.4-10.4); MONO # 0.5 (0.1-0.6); MONO % 4.1 % (1.7-9.3); PLATELET COUNT 153 K/mm3 (130-400); RED BLOOD COUNT 5.12 M/mm3 (4.20-5.60); REDCELL DISTRIBUTION WIDTH-CV 16.3 % (11.5-14.5)
[2021-04-09 00:26] LABS: ALBUMIN 4.5 gm/dL (3.5-5.0); BILIRUBIN,TOTAL 0.4 mg/dL (0.0-1.0); CALCIUM 9.8 mg/dL (8.4-10.2); CREATININE, serum 1.84 (0.66-1.25); POTASSIUM 4.1 mmol/L (3.4-5.0); TOTAL PROTEIN 8.1 gm/dL (6.4-8.2)
[2021-04-09 00:38] LABS: TROPONIN-I 0.037 ng/mL (0.000-0.035)
--- NOTE | 2021-04-09 04:49 | NUR ---
REPORT RECIEVED FROM ER NURSE, AWAITING ARRIVAL TO UNIT. ORDERS REVIEWED.
[2021-04-09 05:07] VITALS: BP 124/68; PULSE 48; TEMP 97.8
--- NOTE | 2021-04-09 05:22 | NUR ---
ADMIT FROM ER FOR FLUID OVERLOAD, ABD PAIN, N/V. PT DENIES ANY PAIN OR N/V SINCE ADMIT STATES AFTER GOT LASIX CAN BREATH BETTER AND HAS NO PAIN. ASSESSMENT COMPLETE. POC DISCUSSED. WILL KEEP PT NPO INCASE OF ?STRESS TEST THIS AM. V/U. ORDERS REVIEWED. CALL LIGHT WI REACH. NEEDS MET.
--- NOTE | 2021-04-09 06:07 | NUR ---
DR BOX NOTIFED OF CONSULT AND WHAT PT IS HERE FOR.
[2021-04-09 08:00] VITALS: BP 123/67; PULSE 67; TEMP 97.9
[2021-04-09] MEDS ORDERED: BUMEX 1MG TA1 MG/TA1 PO (09:31)
--- NOTE | 2021-04-09 10:13 | NUR ---
DAVID met with the patient to discuss discharge plan. The patient lives alone in [place]. He states that his sister, Carrie, lives next door to him. He reports independence with ADLs and has a cane, walker, and wheelchair. He states that he also has home health services from [facility] and they visit him once a week. DAVID contacted and faxed updates to Zoila at [facility] and confirmed services. Zoila reports that they will not need a new face to face, due to the patient being observation status. The patient's PCP is Dr. Hernandez Russell and he receives his medications by delivery from [facility]. The patient's DPOA-HC is in EMR and it designates his mother, Ying Berry (ph#[phone]). The patient is to discharge back home today, 04/09, and resume home health services for fpc from [facility]. DAVID notified Zoila at [facility]. No additional needs at this time. *Discharge plan: home with home health*
--- NOTE | 2021-04-09 10:42 | NUR ---
Patient alert and oriented, answers questions appropriately. See assessment. Heart tones strong and even, pulses palpable. No c/o chest or jaw pain or pressure. No other c/o at this time.
[2021-04-09 11:20] VITALS: BP 119/70; PULSE 64; TEMP 98.1
--- NOTE | 2021-04-09 13:45 | NUR ---
Discharge instructions reviewed with patient, verbalized understanding. Discharged via wheelchair to auto/home with family at 1345.
== END 2021-04-09 13:45 | disposition home or self-care (01) ==
LOC: COL.ER 23:41 → SURG 04-09 03:13
PROVIDERS: Personal Emergency Response Attendant; ADMIT Internal Medicine
DX: I50.23 Acute on chronic systolic (congestive) heart failure (principal); I13.0 Hypertensive heart and chronic kidney disease with heart failure and stage 1 through stage 4 chronic kidney disease, or unspecified chronic kidney disease; N18.30 Chronic kidney disease, stage 3 unspecified; I25.10 Atherosclerotic heart disease of native coronary artery without angina pectoris; J44.9 Chronic obstructive pulmonary disease, unspecified; E78.5 Hyperlipidemia, unspecified; I73.9 Peripheral vascular disease, unspecified; I95.1 Orthostatic hypotension; I34.0 Nonrheumatic mitral (valve) insufficiency; I27.20 Pulmonary hypertension, unspecified; I42.8 Other cardiomyopathies; G62.9 Polyneuropathy, unspecified; F17.210 Nicotine dependence, cigarettes, uncomplicated; F19.10 Other psychoactive substance abuse, uncomplicated; Z20.822 Contact with and (suspected) exposure to COVID-19; Z79.899 Other long term (current) drug therapy; Z79.02 Long term (current) use of antithrombotics/antiplatelets; Z79.82 Long term (current) use of aspirin
CPT/HCPCS: G0378; J1644; J1940; J2270; J2405

== ENCOUNTER 2021-05-07 10:45 | Emergency (ER) | payer MEDICARE, MEDICAID ==
[~2021-05-07] VITALS: Ht 175.3 cm; Wt 50.5 kg
[~2021-05-07 10:45] MED LIST changes: +BUMEX 1MG TA1 MG/TA1 PO
[2021-05-07 11:11] VITALS: TEMP 98.7
[2021-05-07 11:37] LABS: BASO % 0.3 % (0.0-2.0); EOS % 0.4 % (0-4.0); GRAN # 6.8 (1.4-6.5); GRAN % 71.1 % (42.2-75.2); HEMATOCRIT 46.4 % (42.0-52.0); HEMOGLOBIN 15.3 g/dl (13.5-18.0); LYMPH # 1.9 (1.2-3.4); LYMPH % 19.8 % (20.0-51.0); MEAN CELL VOLUME 89 fl (80.0-100.0); MEAN CORPUSCULAR HEMOGLOBIN 29 pg (27.0-31.0); MEAN CORPUSCULAR HGB CONC 33 g/dl (33.0-37.0); MONO # 0.8 (0.1-0.6); MONO % 8.2 % (1.7-9.3); PLATELET COUNT 144 K/mm3 (130-400); RED BLOOD COUNT 5.21 M/mm3 (4.20-5.60); REDCELL DISTRIBUTION WIDTH-CV 15.4 % (11.5-14.5)
[2021-05-07 11:41] LABS: ALBUMIN 4.7 gm/dL (3.5-5.0); BILIRUBIN,TOTAL 0.4 mg/dL (0.0-1.0); CALCIUM 9.6 mg/dL (8.4-10.2); CREATININE, serum 2.8 (0.66-1.25); POTASSIUM 4.7 mmol/L (3.4-5.0); TOTAL PROTEIN 8.7 gm/dL (6.4-8.2)
[2021-05-07 11:53] LABS: TROPONIN-I 0.032 ng/mL (0.000-0.035)
[2021-05-07 12:53] VITALS: BP 111/77; PULSE 60
== END 2021-05-07 12:53 | disposition home or self-care (01) ==
LOC: COL.ER 10:45
PROVIDERS: Personal Emergency Response Attendant
DX: I13.0 Hypertensive heart and chronic kidney disease with heart failure and stage 1 through stage 4 chronic kidney disease, or unspecified chronic kidney disease (principal); N18.9 Chronic kidney disease, unspecified; I50.9 Heart failure, unspecified; Z79.82 Long term (current) use of aspirin; Z79.899 Other long term (current) drug therapy

== ENCOUNTER 2021-08-26 10:05 | Day surgery (SDC) | payer MEDICARE, MEDICAID ==
[~2021-08-26] VITALS: Ht 175.4 cm; Wt 53.4 kg
[2021-08-26] VITALS (10 sets, daily range): BP systolic 124–154; BP diastolic 60–90; PULSE 79–91; TEMP 98.3–98.7
[2021-08-26 10:59] LABS: BASO % 0.3 % (0.0-2.0); EOS # 0.1 K/mm3 (0.0-0.7); EOS % 0.5 % (0-4.0); GRAN # 7.2 K/mm3 (1.4-6.5); GRAN % 72.1 % (42.2-75.2); HEMATOCRIT 33.1 % (42.0-52.0); HEMOGLOBIN 11.3 g/dl (13.5-18.0); LYMPH # 1.9 K/mm3 (1.2-3.4); LYMPH % 19.1 % (20.0-51.0); MEAN CELL VOLUME 88 fl (80.0-100.0); MEAN CORPUSCULAR HEMOGLOBIN 30 pg (27.0-31.0); MEAN CORPUSCULAR HGB CONC 34 g/dl (33.0-37.0); MONO # 0.8 K/mm3 (0.1-0.6); MONO % 7.7 % (1.7-9.3); PLATELET COUNT 157 K/mm3 (130-400); RED BLOOD COUNT 3.77 M/mm3 (4.20-5.60); REDCELL DISTRIBUTION WIDTH-CV 15.2 % (11.5-14.5)
[2021-08-26 11:13] LABS: INR 1.1 (0.8-3.0); PROTHROMBIN TIME 11.7 SECONDS (9.7-12.8)
[2021-08-26 11:15] LABS: CALCIUM 9.3 mg/dL (8.4-10.2); CREATININE, serum 1.76 mg/dL (0.72-1.25); POTASSIUM 5.6 mmol/L (3.5-4.5)
[2021-08-26] MEDS ORDERED: ENTRESTO 24 MG1 EACH PO ×2 (11:18→14:30)
[2021-08-26] MEDS ORDERED: MEGACE20 MG PO (11:26)
[2021-08-26] MEDS ORDERED: LOPRESSOR 225 MG/TAB PO (11:27)
[2021-08-26] MEDS ORDERED: VITAMIN D250 MCG PO (11:28)
--- NOTE | 2021-08-26 11:56 | NUR ---
SEE MERGE FOR MEDICATION ADMINISTRATION TIMES/DOSAGES AND INTRA/POST SEDATION ASSESSMENT.
[2021-08-26] MEDS ORDERED: BUMEX 1MG TA1 MG/TA1 PO (14:29)
--- NOTE | 2021-08-26 20:00 | NUR ---
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 Assessment complete. A&Ox4. Denies pain/nausea/shortness of breath. VS remaine stable. Dressing to left chest CDI-sling on. Ice applied. INT to left forearm. Flushes without difficulty. Plan of care discussed for this shift to include meds/calling for questions/concerns/pain. Verbalizes understanding. Call light in reach. Will monitor.
[2021-08-27] VITALS (7 sets, daily range): BP systolic 140–156; BP diastolic 63–89; PULSE 72–85; TEMP 97.8–98.4
--- NOTE | 2021-08-27 04:10 | NUR ---
Rested well this shift. Denied pain/nausea/shortness of breath. VS remained stable. Dressing to left dress CDI. Sling on. Refused ice pack this AM. Denies current needs. Call light in reach. Will monitor.
--- NOTE | 2021-08-27 07:30 | NUR ---
Pt off unit to cathlab for DVT - OSKAR Rivera aware pt did not have morning labs
[2021-08-27] MEDS ORDERED: CEPHALEXIN500 M1 PO (08:29)
[2021-08-27] MEDS ORDERED: FARXIGA5 PO (08:30)
== END 2021-08-27 11:00 | disposition home or self-care (01) ==
LOC: COL.CAR 10:05 → SURG 10:05 → COL.CAR 08-27 11:00
PROVIDERS: Internal Medicine Cardiovascular Disease
DX: I25.5 Ischemic cardiomyopathy (principal); I11.0 Hypertensive heart disease with heart failure; I50.22 Chronic systolic (congestive) heart failure; I25.10 Atherosclerotic heart disease of native coronary artery without angina pectoris; I34.0 Nonrheumatic mitral (valve) insufficiency; I27.20 Pulmonary hypertension, unspecified; I25.2 Old myocardial infarction; E78.5 Hyperlipidemia, unspecified; J44.9 Chronic obstructive pulmonary disease, unspecified; F17.210 Nicotine dependence, cigarettes, uncomplicated; Z79.899 Other long term (current) drug therapy; Z79.02 Long term (current) use of antithrombotics/antiplatelets; Z95.1 Presence of aortocoronary bypass graft; Z86.73 Personal history of transient ischemic attack (TIA), and cerebral infarction without residual deficits
CPT/HCPCS: OP; C1721; C1769; C1777; C1894; C1898; J0690; J1644; J2250; J2704; J3010

== ENCOUNTER → 2021-09-04 | Outpatient (CLI) | payer MEDICARE, MEDICAID ==
[~2021-09-04] MED LIST changes: +CEPHALEXIN500 M1 PO; +FARXIGA5 PO; +LOPRESSOR 225 MG/TAB PO; +MEGACE20 MG PO; +VITAMIN D250 MCG PO
[2021-09-04 10:23] LABS: CALCIUM 9.6 mg/dL (8.4-10.2); CREATININE, serum 2.2 mg/dL (0.72-1.25); POTASSIUM 4.5 mmol/L (3.5-4.5)
== END ==
LOC: COL.LAB 09:54
PROVIDERS: Family Medicine
DX: E87.5 Hyperkalemia (principal)

== ENCOUNTER 2022-02-07 13:27 | Outpatient (RCR) | payer MEDICARE, MEDICAID | END 2022-02-08 | LOC: MKS.ESL.PT | DX: Z89.612 Acquired absence of left leg above knee (principal) ==

== ENCOUNTER 2022-03-04 09:45 | Outpatient (RCR) | payer MEDICARE, MEDICAID ==
[2022-03-26] MEDS ORDERED: PROTONIX 40MG T40 MG PO (06:13)
== END 2022-03-11 | disposition home or self-care (01) ==
LOC: MKS.ESL.PT
DX: Z89.612 Acquired absence of left leg above knee (principal)

== ENCOUNTER 2022-03-17 09:30 | Outpatient (RCR) | payer MEDICARE, MEDICAID ==
[2022-03-21] MEDS ORDERED: ZOFRAN ODT4 MG PO (09:46)
[2022-03-26] MEDS ORDERED: PROTONIX 40MG T40 MG PO ×2 (06:13)
[2022-03-28] MEDS ORDERED: ZOFRAN ODT4 MG PO (09:36)
[2022-04-06] MEDS ORDERED: PROTONIX 40MG T40 MG PO (09:09)
[2022-04-06] MEDS ORDERED: VANCOCIN H125 MG/CAP PO (09:50)
== END 2022-04-10 | disposition still patient (30) ==
LOC: MKS.ESL.PT
DX: Z96.612 Presence of left artificial shoulder joint (principal)

== ENCOUNTER 2022-03-21 06:56 | Emergency (ER) | payer MEDICARE, MEDICAID ==
[~2022-03-21] VITALS: Ht 175.3 cm; Wt 60.5 kg
[2022-03-21 07:03] VITALS: TEMP 97.2
[2022-03-21 07:23] LABS: BASO # 0.1 K/mm3 (0.0-0.2); BASO % 0.4 % (0.0-2.0); EOS # 0.1 K/mm3 (0.0-0.7); EOS % 0.4 % (0.0-4.0); GRAN # 10.4 K/mm3 (1.4-6.5); GRAN % 75.6 % (42.2-75.2); HEMATOCRIT 48.9 % (42.0-52.0); HEMOGLOBIN 17.4 g/dl (13.5-18.0); LYMPH # 2.2 K/mm3 (1.2-3.4); LYMPH % 15.9 % (20.0-51.0); MEAN CELL VOLUME 85 fl (80.0-100.0); MEAN CORPUSCULAR HEMOGLOBIN 30 pg (27-31); MEAN CORPUSCULAR HGB CONC 36 g/dl (33.0-37.0); MEAN PLATELET VOLUME 10.9 fl (7.4-10.4); MONO % 7.3 % (1.7-9.3); PLATELET COUNT 146 K/mm3 (130-400); RED BLOOD COUNT 5.78 M/mm3 (4.20-5.60); REDCELL DISTRIBUTION WIDTH-CV 17.1 % (11.5-14.5)
[2022-03-21 07:44] LABS: ALBUMIN 4.1 gm/dL (3.4-4.8); BILIRUBIN,TOTAL 0.5 mg/dL (0.2-1.2); CALCIUM 9.8 mg/dL (8.4-10.2); CREATININE, serum 2.35 mg/dL (0.72-1.25); POTASSIUM 3.8 mmol/L (3.5-4.5)
[2022-03-21] MEDS ORDERED: ZOFRAN ODT4 MG PO (09:46)
[2022-03-21 10:19] VITALS: BP 122/78; PULSE 70
[2022-03-26] MEDS ORDERED: PROTONIX 40MG T40 MG PO (06:13)
== END 2022-03-21 10:22 | disposition home or self-care (01) ==
LOC: COL.ER 06:56
PROVIDERS: Emergency Medicine
DX: R11.2 Nausea with vomiting, unspecified (principal); D72.829 Elevated white blood cell count, unspecified; I13.0 Hypertensive heart and chronic kidney disease with heart failure and stage 1 through stage 4 chronic kidney disease, or unspecified chronic kidney disease; N18.9 Chronic kidney disease, unspecified; F17.210 Nicotine dependence, cigarettes, uncomplicated
CPT/HCPCS: J2270; J2405; J7030

== ENCOUNTER 2022-03-26 04:54 | Emergency (ER) | payer MEDICARE, MEDICAID ==
[~2022-03-26] VITALS: Ht 175.3 cm; Wt 60.0 kg
[2022-03-26 05:01] VITALS: TEMP 98.2
[2022-03-26 05:26] LABS: BASO % 0.3 % (0.0-2.0); EOS # 0.1 K/mm3 (0.0-0.7); EOS % 0.8 % (0.0-4.0); GRAN # 7.6 K/mm3 (1.4-6.5); GRAN % 72.4 % (42.2-75.2); HEMATOCRIT 46.8 % (42.0-52.0); HEMOGLOBIN 16.6 g/dl (13.5-18.0); LYMPH # 1.8 K/mm3 (1.2-3.4); LYMPH % 17.6 % (20.0-51.0); MEAN CELL VOLUME 85 fl (80.0-100.0); MEAN CORPUSCULAR HEMOGLOBIN 30 pg (27-31); MEAN CORPUSCULAR HGB CONC 36 g/dl (33.0-37.0); MONO # 0.9 K/mm3 (0.1-0.6); MONO % 8.6 % (1.7-9.3); PLATELET COUNT 144 K/mm3 (130-400); RED BLOOD COUNT 5.48 M/mm3 (4.20-5.60); REDCELL DISTRIBUTION WIDTH-CV 16.3 % (11.5-14.5)
[2022-03-26 05:41] LABS: ALBUMIN 3.8 gm/dL (3.4-4.8); BILIRUBIN,TOTAL 0.7 mg/dL (0.2-1.2); CALCIUM 9.2 mg/dL (8.4-10.2); CREATININE, serum 2.33 mg/dL (0.72-1.25); POTASSIUM 3.8 mmol/L (3.5-4.5); TOTAL PROTEIN 7.3 gm/dL (6.2-8.1)
[2022-03-26 06:09] VITALS: BP 151/84; PULSE 71
[2022-03-26] MEDS ORDERED: PROTONIX 40MG T40 MG PO ×2 (06:13)
== END 2022-03-26 06:10 | disposition home or self-care (01) ==
LOC: COL.ER 04:54
PROVIDERS: Personal Emergency Response Attendant
DX: K85.90 Acute pancreatitis without necrosis or infection, unspecified (principal); N18.9 Chronic kidney disease, unspecified; F17.210 Nicotine dependence, cigarettes, uncomplicated
CPT/HCPCS: C9113; J2270; J2405; J7030

== ENCOUNTER 2022-03-28 06:35 | Emergency (ER) | payer MEDICARE, MEDICAID ==
[~2022-03-28] VITALS: Ht 175.3 cm; Wt 60.0 kg
[~2022-03-28 06:35] MED LIST changes: +PROTONIX 40MG T40 MG PO
[2022-03-28 06:44] VITALS: TEMP 97.3
[2022-03-28 07:15] LABS: BASO % 0.3 % (0.0-2.0); EOS % 0.2 % (0.0-4.0); GRAN # 11.2 K/mm3 (1.4-6.5); HEMATOCRIT 45.2 % (42.0-52.0); HEMOGLOBIN 16.1 g/dl (13.5-18.0); LYMPH # 1.3 K/mm3 (1.2-3.4); MEAN CELL VOLUME 86 fl (80.0-100.0); MEAN CORPUSCULAR HEMOGLOBIN 31 pg (27-31); MEAN CORPUSCULAR HGB CONC 36 g/dl (33.0-37.0); MONO # 0.7 K/mm3 (0.1-0.6); MONO % 5.1 % (1.7-9.3); PLATELET COUNT 119 K/mm3 (130-400); RED BLOOD COUNT 5.28 M/mm3 (4.20-5.60); REDCELL DISTRIBUTION WIDTH-CV 16.6 % (11.5-14.5)
[2022-03-28 07:36] LABS: ALBUMIN 3.9 gm/dL (3.4-4.8); BILIRUBIN,TOTAL 0.4 mg/dL (0.2-1.2); CALCIUM 8.8 mg/dL (8.4-10.2); CREATININE, serum 2.03 mg/dL (0.72-1.25); POTASSIUM 4.1 mmol/L (3.5-4.5); TOTAL PROTEIN 7.7 gm/dL (6.2-8.1)
[2022-03-28 09:21] LABS: COLLECTION METHOD CLEAN CATCH
[2022-03-28 09:28] LABS: PH 6 (5-8); SQUAMOUS EPITHELIAL None Seen /hpf (0-10); URINE APPEARANCE Clear (CLEAR/HAZY); URINE BACTERIA None Seen /hpf (NONE SEEN); URINE BILIRUBIN Negative (NEGATIVE); URINE BLOOD Negative (NEGATIVE); URINE COLOR Yellow (YELLOW); URINE GLUCOSE 1+ (NEGATIVE); URINE KETONE Negative (NEGATIVE); URINE LEUKOCYTE ESTERASE Negative (NEGATIVE); URINE NITRATE Negative (NEGATIVE); URINE PROTEIN(semi-quant) Negative (NEGATIVE); URINE RBC 0-2 /hpf (0-2); URINE UROBILINOGEN Negative (NEGATIVE)
[2022-03-28] MEDS ORDERED: ZOFRAN ODT4 MG PO (09:36)
[2022-03-28 09:40] VITALS: BP 135/93; PULSE 61
== END 2022-03-28 09:45 | disposition home or self-care (01) ==
LOC: COL.ER 06:35
PROVIDERS: Emergency Medicine
DX: R11.2 Nausea with vomiting, unspecified (principal); D72.829 Elevated white blood cell count, unspecified
CPT/HCPCS: J2405; J7030

== ENCOUNTER 2022-03-31 01:15 | Emergency (ER) | payer MEDICARE, MEDICAID ==
[~2022-03-31] VITALS: Ht 175.3 cm; Wt 60.0 kg
[2022-03-31 01:23] VITALS: TEMP 98.1
[2022-03-31 01:40] LABS: BASO # 0.1 K/mm3 (0.0-0.2); BASO % 0.4 % (0.0-2.0); EOS # 0.1 K/mm3 (0.0-0.7); EOS % 0.7 % (0.0-4.0); GRAN # 8.6 K/mm3 (1.4-6.5); GRAN % 65.9 % (42.2-75.2); HEMATOCRIT 47.9 % (42.0-52.0); LYMPH # 3.1 K/mm3 (1.2-3.4); LYMPH % 24.1 % (20.0-51.0); MEAN CELL VOLUME 85 fl (80.0-100.0); MEAN CORPUSCULAR HEMOGLOBIN 30 pg (27-31); MEAN CORPUSCULAR HGB CONC 36 g/dl (33.0-37.0); MEAN PLATELET VOLUME 11.3 fl (7.4-10.4); MONO # 1.1 K/mm3 (0.1-0.6); MONO % 8.6 % (1.7-9.3); PLATELET COUNT 151 K/mm3 (130-400); RED BLOOD COUNT 5.63 M/mm3 (4.20-5.60); REDCELL DISTRIBUTION WIDTH-CV 16.8 % (11.5-14.5)
[2022-03-31 01:59] LABS: ALBUMIN 4.1 gm/dL (3.4-4.8); BILIRUBIN,TOTAL 0.5 mg/dL (0.2-1.2); CALCIUM 9.5 mg/dL (8.4-10.2); CREATININE, serum 2.12 mg/dL (0.72-1.25); POTASSIUM 3.9 mmol/L (3.5-4.5)
[2022-03-31 02:40] LABS: COLLECTION METHOD CLEAN CATCH
[2022-03-31 02:47] LABS: MUCOUS Present (NOT PRESENT); PH 6 (5-8); SQUAMOUS EPITHELIAL 0-2 /hpf (0-10); URINE APPEARANCE Clear (CLEAR/HAZY); URINE BACTERIA None Seen /hpf (NONE SEEN); URINE BILIRUBIN Negative (NEGATIVE); URINE BLOOD Negative (NEGATIVE); URINE COLOR Yellow (YELLOW); URINE GLUCOSE Negative (NEGATIVE); URINE KETONE Trace (NEGATIVE); URINE LEUKOCYTE ESTERASE Negative (NEGATIVE); URINE NITRATE Negative (NEGATIVE); URINE PROTEIN(semi-quant) 2+ (NEGATIVE)
[2022-03-31 04:37] VITALS: BP 137/88; PULSE 85
== END 2022-03-31 04:37 | disposition home or self-care (01) ==
LOC: COL.ER 01:15
PROVIDERS: Emergency Medicine
DX: R10.84 Generalized abdominal pain (principal); D72.829 Elevated white blood cell count, unspecified; R74.8 Abnormal levels of other serum enzymes
CPT/HCPCS: J2270; J2405; J7030

== ENCOUNTER 2022-04-02 08:47 | Emergency (ER) | payer MEDICARE, MEDICAID ==
[~2022-04-02] VITALS: Ht 175.3 cm; Wt 60.0 kg
[2022-04-02 09:03] VITALS: TEMP 98.2
[2022-04-02 09:37] LABS: COLLECTION METHOD CLEAN CATCH
[2022-04-02 09:49] LABS: MUCOUS Present (NOT PRESENT); PH 5 (5-8); SQUAMOUS EPITHELIAL 0-2 /hpf (0-10); URINE APPEARANCE Cloudy (CLEAR/HAZY); URINE BACTERIA None Seen /hpf (NONE SEEN); URINE BILIRUBIN Negative (NEGATIVE); URINE BLOOD Negative (NEGATIVE); URINE COLOR Amber (YELLOW); URINE GLUCOSE Negative (NEGATIVE); URINE KETONE Trace (NEGATIVE); URINE LEUKOCYTE ESTERASE Negative (NEGATIVE); URINE NITRATE Negative (NEGATIVE); URINE PROTEIN(semi-quant) 2+ (NEGATIVE); URINE RBC 20-50 /hpf (0-2)
[2022-04-02 10:05] LABS: BASO % 0.2 % (0.0-2.0); EOS % 0.3 % (0.0-4.0); GRAN # 6.8 K/mm3 (1.4-6.5); GRAN % 75.5 % (42.2-75.2); HEMATOCRIT 43.8 % (42.0-52.0); HEMOGLOBIN 15.4 g/dl (13.5-18.0); LYMPH # 1.5 K/mm3 (1.2-3.4); LYMPH % 16.9 % (20.0-51.0); MEAN CELL VOLUME 86 fl (80.0-100.0); MEAN CORPUSCULAR HEMOGLOBIN 30 pg (27-31); MEAN CORPUSCULAR HGB CONC 35 g/dl (33.0-37.0); MEAN PLATELET VOLUME 10.2 fl (7.4-10.4); MONO # 0.6 K/mm3 (0.1-0.6); MONO % 6.9 % (1.7-9.3); PLATELET COUNT 111 K/mm3 (130-400); RED BLOOD COUNT 5.11 M/mm3 (4.20-5.60); REDCELL DISTRIBUTION WIDTH-CV 16.3 % (11.5-14.5)
[2022-04-02 10:22] LABS: ALBUMIN 3.7 gm/dL (3.4-4.8); BILIRUBIN,TOTAL 0.7 mg/dL (0.2-1.2); C-REACTIVE PROTEIN 0.68 mg/dL (0.00-0.50); CALCIUM 9.2 mg/dL (8.4-10.2); CREATININE, serum 1.85 mg/dL (0.72-1.25); POTASSIUM 4.1 mmol/L (3.5-4.5); TOTAL PROTEIN 7.1 gm/dL (6.2-8.1)
[2022-04-02 11:42] VITALS: BP 159/99; PULSE 78
== END 2022-04-02 11:42 | disposition home or self-care (01) ==
LOC: COL.ER 08:47
PROVIDERS: Family Medicine
DX: E11.43 Type 2 diabetes mellitus with diabetic autonomic (poly)neuropathy (principal); K31.84 Gastroparesis; F17.210 Nicotine dependence, cigarettes, uncomplicated; Z89.512 Acquired absence of left leg below knee
CPT/HCPCS: J1200; J1630; J1790; J7120

== ENCOUNTER 2022-04-03 07:08 | Inpatient (IN) | payer MEDICARE, MEDICAID ==
[~2022-04-03] VITALS: Ht 175.3 cm; Wt 64.1 kg
[2022-04-03 08:21] LABS: BASO % 0.2 % (0.0-2.0); EOS % 0.1 % (0.0-4.0); GRAN # 8.7 K/mm3 (1.4-6.5); GRAN % 82.1 % (42.2-75.2); HEMATOCRIT 43.2 % (42.0-52.0); LYMPH # 1.2 K/mm3 (1.2-3.4); MEAN CELL VOLUME 87 fl (80.0-100.0); MEAN CORPUSCULAR HEMOGLOBIN 30 pg (27-31); MEAN CORPUSCULAR HGB CONC 35 g/dl (33.0-37.0); MEAN PLATELET VOLUME 10.8 fl (7.4-10.4); MONO # 0.7 K/mm3 (0.1-0.6); MONO % 6.3 % (1.7-9.3); PLATELET COUNT 120 K/mm3 (130-400); RED BLOOD COUNT 4.99 M/mm3 (4.20-5.60); REDCELL DISTRIBUTION WIDTH-CV 16.6 % (11.5-14.5)
[2022-04-03 08:44] LABS: ALBUMIN 4.2 gm/dL (3.4-4.8); BILIRUBIN,TOTAL 0.7 mg/dL (0.2-1.2); CALCIUM 9.5 mg/dL (8.4-10.2); CREATININE, serum 1.78 mg/dL (0.72-1.25); POTASSIUM 4.6 mmol/L (3.5-4.5); TOTAL PROTEIN 7.8 gm/dL (6.2-8.1)
[2022-04-03 12:47] VITALS: BP 160/89; PULSE 75; TEMP 98.4
--- NOTE | 2022-04-03 12:56 | NUR ---
Director Of Marketing Operations responded to consult in the ED for patient who has been seen multiple times in the last month (03/21/22, 03/26/22, 03/28/22, 03/31/22, 04/02/22). Patient lives alone in [place] and sees Dr. Russell for primary care. Patient states he saw Dr. Rusesll last week and his frequent ED visits were addressed and an outpatient GI follow up was scheduled. Patient has his medications delivered to his home by [facility] and reports no difficulty affording his medications. Patient's DPOA-HC is his mother, Ying (ph#[phone]) and he plans to go to her house if he discharges today. Patient reports he has had Home Health services from [facility] in the past and was open to their services again. Patient will be admitted to Medical. DAVID sent an email to [facility] Econom[facility] to follow up on patient needs. DAVID also contacted [facility] and they discharged patient on 08/01/21. [facility] would be open to accepting patient again.
[2022-04-03 15:05] VITALS: BP 151/69; PULSE 84; TEMP 98.2
[2022-04-03 16:52] VITALS: BP 144/97; TEMP 98.1
[2022-04-03 18:33] LABS: TRICYCLIC ANTIDEPRESS URINE NEGATIVE
[2022-04-03 20:53] VITALS: BP 138/91; PULSE 67; TEMP 98.3
[2022-04-03 23:35] VITALS: BP 157/79; PULSE 65; TEMP 98.7
[2022-04-04] VITALS (10 sets, daily range): BP systolic 129–183; BP diastolic 73–97; PULSE 70–88; TEMP 98.3–98.9
[2022-04-04 03:35] LABS: CLOSTRIDIUM DIFF A/B NEG; CLOSTRIDIUM DIFF A/B INTERP NonToxigenic C.diff
--- NOTE | 2022-04-04 05:45 | NUR ---
ASSESSMENT COMPLETE FOR THIS SHIFT. PT RESTING IN BED WATCHING TV. PT DENIED GENERAL PAIN, CHEST PAIN, PALPITATIONS, SOB, N.V OR DIZZINESS. PT COMPLAINED OF ONE BOUT OF DIARRHEA. SPECIMEN SENT TO LAB. PT EXPRESSED NO OTHER NEEDS AT THIS TIME. CALL LIGHT WITHIN REACH.
[2022-04-04 06:53] LABS: BASO % 0.3 % (0.0-2.0); EOS % 0.2 % (0.0-4.0); GRAN # 8.5 K/mm3 (1.4-6.5); GRAN % 78.6 % (42.2-75.2); HEMATOCRIT 44.3 % (42.0-52.0); HEMOGLOBIN 15.3 g/dl (13.5-18.0); LYMPH # 1.4 K/mm3 (1.2-3.4); LYMPH % 12.5 % (20.0-51.0); MEAN CELL VOLUME 86 fl (80.0-100.0); MEAN CORPUSCULAR HEMOGLOBIN 30 pg (27-31); MEAN CORPUSCULAR HGB CONC 35 g/dl (33.0-37.0); MEAN PLATELET VOLUME 11.9 fl (7.4-10.4); MONO # 0.9 K/mm3 (0.1-0.6); MONO % 8.1 % (1.7-9.3); PLATELET COUNT 114 K/mm3 (130-400); RED BLOOD COUNT 5.18 M/mm3 (4.20-5.60); REDCELL DISTRIBUTION WIDTH-CV 16.1 % (11.5-14.5)
[2022-04-04 07:10] LABS: ALBUMIN 4.2 gm/dL (3.4-4.8); CALCIUM 9.3 mg/dL (8.4-10.2); CREATININE, serum 1.87 mg/dL (0.72-1.25); POTASSIUM 4.1 mmol/L (3.5-4.5); TOTAL PROTEIN 7.8 gm/dL (6.2-8.1)
--- NOTE | 2022-04-04 08:38 | NUR ---
Patient prescribed hazardous medication: megestrol. Staff to follow ongoing chemo precautions when handling urine and feces as medication is active in EMAR. Notified care team and placed sign outside patient room.
--- NOTE | 2022-04-04 12:47 | NUR ---
PATIENT DOING WELL THIS SHIFT. CONTINUES TO COMPLAIN OF DIARRHEA AND MILD ABD CRAMPING. STOOL SAMPLE WAS POSITIVE FOR C DIFF, PATIENT PLACED ON CONTACT ISOLATION AND PROVIDER NOTIFIED. SCHEDULED TO HAVE EGD DONE TODAY AT 1630, NPO SINCE MIDNIGHT. A&O X4, INDEPENDENT IN ROOM. CONTINENT OF B/B.
--- NOTE | 2022-04-04 14:09 | NUR ---
SW contacted and faxed a referral to [facility]. [facility] reports that they are able to accept the patient back for services.
[2022-04-05 00:10] VITALS: BP 178/97; PULSE 86; TEMP 98.4
[2022-04-05 04:38] VITALS: BP 179/91; PULSE 87; TEMP 98
--- NOTE | 2022-04-05 05:30 | NUR ---
ASSESSMENT COMPLETE FOR THIS SHIFT. PT IN THE SHOWER WENT I WALKED IN FOR HIS ASSESSMENT. PT DENIED GENERAL PAIN, CHEST PAIN, PALPITATIONS, SOB, N,V,D OR DIZZINESS. PT HAD A PRETTY UNEVENTFUL NIGHT. PT EXPRESSED NO OTHER NEEDS. CALL LIGHT WITHIN REACH.
--- NOTE | 2022-04-05 06:00 | NUR ---
ASSESSMENT COMPLETE FOR THIS SHIFT. AROUND MIDNIGHT PT STARTED COMPLAINING ABOUT ABD PAIN, NAUSEA AND VOMITING. PT GIVEN ZOFRAN, PHENERGAN, MAGNESIUM, BENADRYL, INAPSIN AND MORPHINE TWICE, AND PT STILL WAS COMPLAINING. PT ALSO GIVEN APRESOLINE A COUPLE OF TIMES TONGHT FOR HIGH BLOOD PRESSURES. CALL LIGHT WITHIN REACH.
[2022-04-05 08:16] VITALS: BP 178/82; PULSE 83; TEMP 98.5
[2022-04-05 11:26] VITALS: BP 165/90; PULSE 92; TEMP 98.1
[2022-04-05 15:51] VITALS: BP 143/75; PULSE 51; TEMP 98.7
[2022-04-05 19:34] VITALS: BP 134/63; PULSE 102; TEMP 98.7
[2022-04-06 00:27] VITALS: BP 133/81; PULSE 99; TEMP 98.6
[2022-04-06 04:50] VITALS: BP 135/81; PULSE 100; TEMP 98.2
[2022-04-06 08:07] LABS: BASO % 0.4 % (0.0-2.0); EOS % 0.1 % (0.0-4.0); GRAN # 5.9 K/mm3 (1.4-6.5); GRAN % 65.1 % (42.2-75.2); HEMATOCRIT 42.8 % (42.0-52.0); HEMOGLOBIN 15.1 g/dl (13.5-18.0); LYMPH # 2.1 K/mm3 (1.2-3.4); LYMPH % 23.4 % (20.0-51.0); MEAN CELL VOLUME 85 fl (80.0-100.0); MEAN CORPUSCULAR HEMOGLOBIN 30 pg (27-31); MEAN CORPUSCULAR HGB CONC 35 g/dl (33.0-37.0); MEAN PLATELET VOLUME 11.7 fl (7.4-10.4); MONO % 10.8 % (1.7-9.3); PLATELET COUNT 119 K/mm3 (130-400); RED BLOOD COUNT 5.05 M/mm3 (4.20-5.60)
--- NOTE | 2022-04-06 08:16 | NUR ---
PATIENT A&OX4. NO COMPLAINTS OF PAIN. ASKING FOR FOOD, INCREASED APPETITTE. REPORTS NO BM IN 24HRS. ABD SOFT AND NON TENDER.
[2022-04-06 08:18] LABS: CALCIUM 9.2 mg/dL (8.4-10.2); CREATININE, serum 2.43 mg/dL (0.72-1.25); POTASSIUM 3.9 mmol/L (3.5-4.5)
[2022-04-06 08:24] VITALS: BP 151/76; PULSE 81; TEMP 98.5
[2022-04-06] MEDS ORDERED: PROTONIX 40MG T40 MG PO (09:09)
[2022-04-06] MEDS ORDERED: VANCOCIN H125 MG/CAP PO (09:50)
[2022-04-06 11:25] VITALS: BP 145/89; PULSE 88; TEMP 98.3
--- NOTE | 2022-04-06 11:53 | NUR ---
DAVID faxed DC orders to [facility] at 11:53 am 04/06
--- NOTE | 2022-04-06 13:19 | NUR ---
PATIENT DISCHARGE INSTRUCTIONS GIVEN, MEDS REVIEWED. INT DISCONTINUED, TELE REMOVED. PATIENT DRESSED WITH NO NURSING ASSISTANCE. WAITING FOR RIDE (MOTHER) TO ARRIVE TO BE WHEELED OUT.
== END 2022-04-06 13:30 | disposition home or self-care (01) | DRG 384 ==
LOC: COL.ER 07:08 → MEDICAL 12:02 → COL.ER 12:02 → MEDICAL 04-06 13:30
PROVIDERS: Family Medicine; Internal Medicine Gastroenterology; Physician Assistant; Student in an Organized Health Care Education/Training Program; ADMIT Family Medicine
PROC: 0DB78ZX Excision of Stomach, Pylorus, Via Natural or Artificial Opening Endoscopic, Diagnostic (ICD-10-PCS; principal; 2022-04-04 16:00)
DX: K25.9 Gastric ulcer, unspecified as acute or chronic, without hemorrhage or perforation (principal); A04.72 Enterocolitis due to Clostridium difficile, not specified as recurrent; I13.0 Hypertensive heart and chronic kidney disease with heart failure and stage 1 through stage 4 chronic kidney disease, or unspecified chronic kidney disease; I50.22 Chronic systolic (congestive) heart failure; I27.20 Pulmonary hypertension, unspecified; Z20.822 Contact with and (suspected) exposure to COVID-19; F17.210 Nicotine dependence, cigarettes, uncomplicated; I73.9 Peripheral vascular disease, unspecified; N18.30 Chronic kidney disease, stage 3 unspecified; J44.9 Chronic obstructive pulmonary disease, unspecified; I25.10 Atherosclerotic heart disease of native coronary artery without angina pectoris; F41.9 Anxiety disorder, unspecified; G62.9 Polyneuropathy, unspecified; E78.5 Hyperlipidemia, unspecified; I08.1 Rheumatic disorders of both mitral and tricuspid valves; I25.5 Ischemic cardiomyopathy; F12.10 Cannabis abuse, uncomplicated; R11.15 Cyclical vomiting syndrome unrelated to migraine; R19.7 Diarrhea, unspecified; Z95.5 Presence of coronary angioplasty implant and graft; Z79.82 Long term (current) use of aspirin; Z95.0 Presence of cardiac pacemaker; I25.2 Old myocardial infarction; Z86.73 Personal history of transient ischemic attack (TIA), and cerebral infarction without residual deficits; Z89.612 Acquired absence of left leg above knee; Z23 Encounter for immunization
CPT/HCPCS: 99233-AI; 99239; C9113; G0378; J0360; J1200; J1630; J1644; J1790; J2270; J2405; J2550; J2704; J3475; J7030; J7120

== ENCOUNTER 2022-05-16 08:42 | Day surgery (SDC) | payer MEDICARE, MEDICAID ==
[~2022-05-16] VITALS: Ht 176.5 cm; Wt 60.2 kg
[~2022-05-16 08:42] MED LIST changes: +VANCOCIN H125 MG/CAP PO
[2022-05-16] MEDS ORDERED: ENTRESTO 24 MG1 EACH PO (09:30)
[2022-05-16] MEDS ORDERED: LOPRESSOR 225 MG/TAB PO (09:31)
[2022-05-16 09:35] VITALS: BP 113/77; PULSE 73; TEMP 97.3
[2022-05-16 10:30] VITALS: BP 118/78; PULSE 64; TEMP 97
--- NOTE | 2022-05-16 10:30 | NUR ---
pt to [facility] via cart from [facility] room, pt uses w/c to transfer self. pt took snack, has call light in reach, no c/o
[2022-05-16 10:45] VITALS: BP 135/91; PULSE 74
[2022-05-16 11:00] VITALS: BP 128/80; PULSE 74
--- NOTE | 2022-05-16 11:00 | NUR ---
dr verma earlier to see pt, iv d'cd intact. reviewed discharge inst. with pt on moderate sedation precautions, also reviewed medication list with pt, called his pharmacy to confirm he was on PPI medication and he is, and will con't medication. pt up and dressed, discharged via w/c to car to family member at 1115
== END 2022-05-16 11:15 | disposition home or self-care (01) ==
LOC: SDCO 08:42
DX: K29.30 Chronic superficial gastritis without bleeding (principal); K31.89 Other diseases of stomach and duodenum; Z87.11 Personal history of peptic ulcer disease; K25.9 Gastric ulcer, unspecified as acute or chronic, without hemorrhage or perforation
CPT/HCPCS: J2704; J7120

== ENCOUNTER 2022-12-04 07:59 | Emergency (ER) | payer MEDICARE, MEDICAID ==
[~2022-12-04] VITALS: Ht 175.3 cm; Wt 58.2 kg
[2022-12-04 08:26] VITALS: BP 130/70; TEMP 98.3
[2022-12-04] MEDS ORDERED: PREDNISONE20 MG PO (08:47)
[2022-12-04] MEDS ORDERED: NORCO 325 MG-51 TAB PO (08:47)
[2022-12-04 09:19] VITALS: PULSE 69
== END 2022-12-04 09:19 | disposition home or self-care (01) ==
LOC: COL.ER 07:59
DX: M19.032 Primary osteoarthritis, left wrist (principal); F17.210 Nicotine dependence, cigarettes, uncomplicated
CPT/HCPCS: J1040

== ENCOUNTER → 2023-02-05 | Outpatient (CLI) | payer MEDICARE, MEDICAID | LOC: COL.RAD 14:04 | DX: Z12.2 Encounter for screening for malignant neoplasm of respiratory organs (principal); F17.210 Nicotine dependence, cigarettes, uncomplicated ==